=== PATIENT | female | born 1995 | race Hispanic/Latino ===

== ENCOUNTER 2018-09-08 13:37 | Emergency (ER) | payer BC, OTHER ==
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
--- NOTE | 2018-09-08 15:09 | RAD REPORT ---
EXAM DESCRIPTION: RAD - Tib Fib Left - 09/08/2018 2:58 pm CLINICAL HISTORY: PAIN COMPARISON: <Comparisons> FINDINGS: No fracture or dislocation seen.
[2018-09-11 15:26] VITALS: BP 119/76; TEMP 99; O2SAT 100
== END 2018-09-08 15:15 | disposition home or self-care (01) ==
LOC: ER 13:37
DX: J34.89 Other specified disorders of nose and nasal sinuses (principal); S80.812A Abrasion, left lower leg, initial encounter; S00.83XA Contusion of other part of head, initial encounter; Y04.0XXA Assault by unarmed brawl or fight, initial encounter
CPT/HCPCS: 70450; 70486; 76377; 99283

== ENCOUNTER 2020-09-16 03:43 | Emergency (ER) | payer BC, OTHER ==
--- OUTSIDE RECORDS SUMMARY | 2020-09-16 03:46 | XMS REPORT | Continuity of Care Document ---
:1995 Author Organization [facility] t Address [address] [place] [address] Care Team Providers Name Role Phone Jacobo TREVINO Attending Clinician Doctor Unassigned, Name Attending Clinician Unavailable Only, Test Attending Clinician Unavailable Ultrasound Attending Clinician Unavailable 2, Lab Attending Clinician Unavailable Jacobo TREVINO Admitting Clinician Problems This patient has no known problems. Allergies, Adverse Reactions, Alerts This patient has no known allergies or adverse reactions. Medications This patient has no known medications. Procedures This patient has no known procedures. Encounters Start End Encounter Admission Attending Care Care Encounter Source Date/Time Date/Time Type Type Clinicians Facility Department ID 2020-07-09 2020-07-10 [facility] Barbara Centeno [facility] 1.2.840.114 [id number] 04:45:00 20:30:00 Encounter Danette [id number] [place] [id number] [place] [id number] 2020-07-09 2020-07-09 Orders Doctor HERACLIO 1.2.840.114 [id number] 00:00:00 00:00:00 Only Unassigned, [place]OSIE [id number] [place] [facility] [id number] [id number] 2020-07-06 2020-07-06 Laboratory Only, [facility] 1.2.840.114 [id number] 15:10:23 15:25:23 Only Test Danette [id number] [place] [id number] [place] [id number] 2020-07-06 2020-07-06 Orders Doctor HERACLIO 1.2.840.114 [id number] 00:00:00 00:00:00 Only Unassigned, JOSIE [id number] [place] [address]686 [id number] [id number] 2020-06-21 2020-06-21 Orders Doctor HERACLIO 1.2.840.114 [id number] 00:00:00 00:00:00 Only Unassigned, JOSIE [id number] [place] [address]686 [id number] [id number] 2020-06-10 2020-06-10 [employer] Ultrasound, [facility] 1.2.840.114 [id number] 15:02:27 15:36:33 Visit Ang-[employer] [employer] PROGRAM[employer] REMOTE [id number] [facility] [id number] MATERNAL [id number] & CHILD [address] [facility] 2020-06-01 2020-06-01 Hospital Barbara Centeno [facility] 1.2.840.114 [id number] 12:38:00 19:30:00 Encounter Danette [id number] [place] [id number] [place] [id number] 2020-06-01 2020-06-01 Orders Doctor PULLIAM 1.2.840.114 [id number] 00:00:00 00:00:00 Only Unassigned, JOSIE [id number] [place] [id number] [id number] 2020-05-27 2020-05-27 [employer] Ultrasound, [facility] 1.2.840.114 [id number] 15:24:27 15:54:27 Visit Ang[employer]OTE [id number] [facility] [id number] MATERNAL [id number] & CHILD [address] [facility] 2020-03-17 2020-03-17 [employer] Worker 2, Adc Lab [facility] 1.2.840.114 [id number] 16:13:42 16:28:42 Visit [place] [id number] [place] [id number] Professio [id number] [address] 2020-03-03 2020-03-03 [employer] Worker Ultrasound, [facility] 1.2.840.114 [id number] 14:11:09 15:11:09 Visit Ang[employer]GRAM[employer] REMOTE [id number] [facility] [id number] MATERNAL [id number] & CHILD [address] [place] [address] [facility] [place] 2020-01-09 2020-01-09 Telephone Barbara Centeno [facility] 1.2.840.114 [id number] 00:00:00 00:00:00 [place] [id number] [place] [id number] Professio [id number] [address] 2020-01-07 2020-01-07 Orders Doctor HERACLIO 1.2.840.114 [id number] 00:00:00 00:00:00 Only Unassigned, JOSIE [id number] [place] [facility] [id number] [id number] 2019-12-26 2019-12-26 [employer] Worker 2, Adc Lab [place] 1.2.840.114 [id number] 10:34:43 10:49:43 Visit [place] [id number] [place] [id number] Professio [id number] [address] 2019-12-22 2019-12-22 Telephone Barbara Centeno [facility] 1.2.840.114 [id number] 00:00:00 00:00:00 [place] [id number] [place] [id number] Professio [id number] [address] 2019-12-19 2019-12-19 Initial Barbara Centeno [facility] 1.2.840.114 [id number] 14:31:14 16:02:34 [place] [id number] Visit [place] [id number] Professio [id number] [address] 2019-12-19 2019-12-19 Orders Doctor HERACLIO 1.2.840.114 [id number] 00:00:00 00:00:00 Only Unassigned, JOSIE [id number] [place] [facility] [id number] [id number] [id number] Results This patient has no known results.
[2020-09-16 04:31] LABS: Absolute Lymphocytes (CBC) 1.7 K/uL (0.7-4.9); Basophils % 0.7 % (0-1.3); Hematocrit 36.4 % (36.0-45.0); Lymphocytes % 24.9 % (15.3-44.8); MPV 10.3 fL (7.6-11.3); RBC Red Blood Cell Count 4.26 M/uL (3.86-4.86)
[2020-09-16] MEDS ORDERED: LIDOCAINE VISCOUS 2% SOLN 15 ML UDC ONE (04:42)
[2020-09-16] MEDS ORDERED: MAGNES/ALUMIN/SIMET 30ML UCUP ONE (04:42)
[2020-09-16 04:48] LABS: ALT/SGPT 70 U/L (12-78); AST/SGOT 30 U/L (15-37); Albumin 3.9 g/dL (3.4-5.0); Alkaline Phosphatase 94 U/L (45-117); BUN Blood Urea Nitrogen 14 mg/dL (7-18); Bicarbonate 28 mmol/L (21-32); Bilirubin Direct < 0.1 mg/dL (0-0.2); Bilirubin Total 0.3 mg/dL (0.2-1.0); Glucose Level 95 mg/dL (74-106); Lipase 126 U/L (73-393); Potassium 3.8 mmol/L (3.5-5.1); Protein, Total 7.6 g/dL (6.4-8.2); Sodium Level 142 mmol/L (136-145)
[2020-09-16] MEDS ORDERED: MORPHINE 4 MG/ML SYR ONE (06:37)
[2020-09-16] MEDS ORDERED: ONDANSETRON 4 MG/2 ML VIAL ONE (06:37)
--- NOTE | 2020-09-16 06:53 | ER ---
Nurse's Notes [facility] Name: Sihra Pineda Age: 25 yrs Sex: Female : 1995 Arrival Date: 09/16/2020 Time: 03:46 Bed 19 Private MD: Diagnosis: Other cholelithiasis without obstruction Presentation: 09/16 03:55 Chief complaint: Parent and/or Guardian states: Reports she ate pizza last night, ea started having abdominal pain at midnight. Denies n/v/d. Coronavirus screen: At this time, the client does not indicate any symptoms associated with coronavirus-19. Ebola Screen: No symptoms or risks identified at this time. Initial Sepsis Screen: Does the patient meet any 2 criteria? No. Patient's initial sepsis screen is negative. Does the patient have a suspected source of infection? No. Patient's initial sepsis screen is negative. Risk Assessment: Do you want to hurt yourself or someone else? Patient reports no desire to harm self or others. Onset of symptoms was September 16, 2020. 03:55 Method Of Arrival: Ambulatory ea 03:55 Acuity: RAMANDEEP 3 ea Triage Assessment: 04:00 General: Appears uncomfortable, Behavior is calm, cooperative. Pain: Complains of pain bb in epigastric area. Neuro: Level of Consciousness is awake, alert, obeys commands, Oriented to person, place, time. Respiratory: Airway is patent Respiratory effort is even, unlabored, Respiratory pattern is regular, symmetrical. GI: Abdomen is non-distended. PHARMACY INFORMATICS MANAGER: 04:00 LMP 09/09/2020 bb Historical: - Allergies: 04:00 No Known Allergies; bb - PMHx: 04:00 None; bb - Immunization history:: Adult Immunizations up to date. - Social history:: Smoking status: Patient denies any tobacco usage or history of. Screenin:57 Abuse screen: Denies threats or abuse. Nutritional screening: No deficits noted. ea Tuberculosis screening: No symptoms or risk factors identified. Fall Risk None identified. Assessment: 04:16 GI: Bowel sounds present X 4 quads. Abd is soft Abdomen is tender to palpation X 4 jm8 quads. 06:50 Reassessment: Patient appears in no apparent distress at this time. No changes from jm8 previously documented assessment. Patient and/or family updated on plan of care and expected duration. Pain level reassessed. Patient is alert, oriented x 3, equal unlabored respirations, skin warm/dry/pink. 07:13 Reassessment: Patient appears in no apparent distress at this time. Patient and/or jd3 family updated on plan of care and expected duration. Pain level reassessed. Patient is alert, oriented x 3, equal unlabored respirations, skin warm/dry/pink. Patient states feeling better. General: Appears in no apparent distress. comfortable, Behavior is calm, cooperative, appropriate for age. Pain: Complains of pain in abdomen Quality of pain is described as aching. Neuro: Level of Consciousness is awake, alert, obeys commands, Oriented to person, place, time, situation. Cardiovascular: No deficits noted. Respiratory: No deficits noted. GI: Abdomen is flat, non-distended, Abd is soft and non tender X 4 quads. Reports upper abdominal pain. : No signs and/or symptoms were reported regarding the genitourinary system. EENT: No signs and/or symptoms were reported regarding the EENT system. Derm: Skin is intact, Skin is dry, Skin is normal, Skin temperature is warm. Musculoskeletal: Circulation, motion, and sensation intact. Range of motion: intact in all extremities. Vital Signs: 03:55 BP 123 / 83; Pulse 73; Resp 18; Temp 97.3; Pulse Ox 100% ; Weight 71.21 kg; Height 5 ea ft. 3 in. (160.02 cm); 06:34 BP 127 / 84; Pulse 78; Resp 16; Pulse Ox 99% on R/A; jm8 03:55 Body Mass Index 27.81 (71.21 kg, 160.02 cm) ED Course: 03:46 Patient arrived in ED. es 03:47 Dylon Moran MD is Attending Physician. tw4 03:57 Triage completed. ea 03:57 Patient has correct armband on for positive identification. Bed in low position. Call ea light in reach. Side rails up X2. 04:00 Arm band placed on right wrist. Patient placed in an exam room, on a stretcher, on bb pulse oximetry. 04:15 Inserted saline lock: 20 gauge in right antecubital area, using aseptic technique. jm8 06:57 US Abdomen Limited In Process Unspecified. EDMS 06:57 Mino, Graham, MD is Referral Physician. tw4 06:57 Lee Marrero MD is Referral Physician. tw4 06:57 Simi Brewster MD is Referral Physician. tw4 06:57 Dom Henry MD is Referral Physician. tw4 07:08 Amilcar Keen, RN is Primary Nurse. jd3 07:14 No provider procedures requiring assistance completed. IV discontinued, intact, jd3 bleeding controlled, No redness/swelling at site. Pressure dressing applied. Administered Medications: 04:23 Drug: GI Cocktail without - (Maalox Suspension 30 ml, Lidocaine Liquid 2 % 15 jm8 ml) Route: PO; 06:20 Follow up: Response: No adverse reaction jm8 06:19 Drug: morphine 4 mg Route: IVP; Site: right antecubital; jm8 06:51 Follow up: Response: No adverse reaction jm8 06:19 Drug: Zofran (Ondansetron) 4 mg Route: IVP; Site: right antecubital; jm8 06:51 Follow up: Response: No adverse reaction jm8 Outcome: 06:52 Discharge ordered by . tw4 07:14 Discharged to home ambulatory, with family. jd3 07:14 Condition: stable 07:14 Discharge instructions given to patient, family, Instructed on discharge instructions, follow up and referral plans. medication usage, Demonstrated understanding of instructions, follow-up care, medications, Prescriptions given X 1. 07:23 Patient left the ED. jd3 Signatures: Dispatcher [employer] [facility] Shirley Richardson Brenda RN Katherine Goncalves RN RN ea Davies, Jonathon, RN RN jDylon Pitt MD MD tw Hermelindo Page, RN RN jm8
--- NOTE | 2020-09-16 06:54 | EDPHYS ---
Physician Documentation [facility] Name: Shira Pineda Age: 25 yrs Sex: Female : 1995 Arrival Date: 09/16/2020 Time: 03:46 Bed 19 Private MD: ED Physician Dylon Moran HPI: 09/16 04:20 This 25 yrs old Female presents to ER via Ambulatory with complaints of tw4 Abdominal Pain. 04:20 The patient presents with abdominal pain. Onset: The symptoms/episode began/occurred tw4 today. The symptoms do not radiate. Associated signs and symptoms: none. Modifying factors: The symptoms are alleviated by nothing, the symptoms are aggravated by nothing. Severity of pain: At its worst the pain was moderate in the emergency department the pain is unchanged. The patient has not experienced similar symptoms in the past. 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 - Social history:: Smoking status: Patient denies any tobacco usage or history of. ROS: 04:20 Constitutional: Negative for fever, chills, and weight loss, Eyes: Negative for injury, tw4 pain, redness, and discharge, Cardiovascular: Negative for chest pain, palpitations, and edema, Respiratory: Negative for shortness of breath, cough, wheezing, and pleuritic chest pain, Back: Negative for injury and pain, MS/Extremity: Negative for injury and deformity, Skin: Negative for injury, rash, and discoloration, Neuro: Negative for headache, weakness, numbness, tingling, and seizure. 04:20 Abdomen/GI: Positive for abdominal pain, Negative for nausea and vomiting, nausea, vomiting, and diarrhea, nausea, diarrhea, abdominal cramps, abdominal distension, anorexia, black/tarry stool. Exam: 06:15 Constitutional: This is a well developed, well nourished patient who is awake, alert, tw4 and in no acute distress. Head/Face: Normocephalic, atraumatic. Chest/axilla: Normal chest wall appearance and motion. Nontender with no deformity. No lesions are appreciated. Cardiovascular: Regular rate and rhythm with a normal S1 and S2. No gallops, murmurs, or rubs. Normal PMI, no JVD. No pulse deficits. Respiratory: Lungs have equal breath sounds bilaterally, clear to auscultation and percussion. No rales, rhonchi or wheezes noted. No increased work of breathing, no retractions or nasal flaring. Skin: Warm, dry with normal turgor. Normal color with no rashes, no lesions, and no evidence of cellulitis. MS/ Extremity: Pulses equal, no cyanosis. Neurovascular intact. Full, normal range of motion. Neuro: Awake and alert, GCS 15, oriented to person, place, time, and situation. Cranial nerves II-XII grossly intact. Motor strength 5/5 in all extremities. Sensory grossly intact. Cerebellar exam normal. Normal gait. 06:15 Abdomen/GI: Inspection: abdomen appears normal, Bowel sounds: normal, Palpation: moderate abdominal tenderness, in the epigastric area. Vital Signs: 03:55 BP 123 / 83; Pulse 73; Resp 18; Temp 97.3; Pulse Ox 100% ; Weight 71.21 kg; Height 5 ea ft. 3 in. (160.02 cm); 06:34 BP 127 / 84; Pulse 78; Resp 16; Pulse Ox 99% on R/A; jm8 03:55 Body Mass Index 27.81 (71.21 kg, 160.02 cm) ea MDM: 06:52 Patient medically screened. 09/16 03:54 Order name: Basic Metabolic Panel 09/16 03:54 Order name: CBC with Diff; Complete Time: 06:14 09/16 03:54 Order name: Hepatic Function 09/16 03:54 Order name: Lipase; Complete Time: 06:14 09/16 03:55 Order name: Basic Metabolic Panel; Complete Time: 06:14 EDMS 09/16 03:55 Order name: Liver (Hepatic) Function; Complete Time: 06:14 EDNH 09/16 03:54 Order name: IV Saline Lock; Complete Time: 04:15 09/16 03:54 Order name: Labs collected and sent; Complete Time: 04:15 tw09/16 06:36 Order name: US Abdomen Limited tw4 Administered Medications: 04:23 Drug: GI Cocktail without - (Maalox Suspension 30 ml, Lidocaine Liquid 2 % 15 jm8 ml) Route: PO; 06:20 Follow up: Response: No adverse reaction jm8 06:19 Drug: morphine 4 mg Route: IVP; Site: right antecubital; jm8 06:51 Follow up: Response: No adverse reaction jm8 06:19 Drug: Zofran (Ondansetron) 4 mg Route: IVP; Site: right antecubital; jm8 06:51 Follow up: Response: No adverse reaction jm8 Disposition Summary: 09/16/20 06:52 Discharge Ordered Location: Home tw4 Problem: new tw4 Symptoms: have improved tw4 Condition: Stable tw4 Diagnosis - Other cholelithiasis without obstruction tw4 Followup: tw4 - With: Private Physician - When: Upon discharge from the Emergency Department - Reason: Recheck today's complaints, Continuance of care, Re-evaluation by your physician Followup: tw4 - With: Graham Herzog MD - When: Upon discharge from the Emergency Department - Reason: Recheck today's complaints, Continuance of care, Re-evaluation by your physician Followup: tw4 - With: Lee Marrero MD - When: Upon discharge from the Emergency Department - Reason: Recheck today's complaints, Continuance of care, Re-evaluation by your physician Followup: tw4 - With: Simi Brewster MD - When: Upon discharge from the Emergency Department - Reason: Recheck today's complaints, Continuance of care, Re-evaluation by your physician Followup: tw4 - With: Dom Henry MD - When: Upon discharge from the Emergency Department - Reason: Recheck today's complaints, Continuance of care, Re-evaluation by your physician Discharge Instructions: - Discharge Summary Sheet tw4 - Cholelithiasis tw4 Forms: - Medication Reconciliation Form tw4 - Thank You Letter tw4 - Antibiotic Education tw4 - Prescription Opioid Use tw4 Prescriptions: - Ibuprofen 800 mg Oral Tablet - take 1 tablet by ORAL route every 12 hours As needed take with food; 20 tablet; tw4 Refills: 0, Product Selection Permitted Signatures: Dispatcher [employer] Amber Hanson RN RN bb Antunez, Elena, RN RN ea Wadley, Terrence, MD MD tw4 Hermelindo Page RN RN jm8
[2020-09-16 07:42] VITALS: TEMP 97.3
--- NOTE | 2020-09-16 07:44 | RAD REPORT ---
EXAM DESCRIPTION: US - Abdomen Exam Limited - 09/16/2020 6:57 am CLINICAL HISTORY: R/O GALLSTONES;Abd pain Preliminary findings were provided at the time of the study. COMPARISON: No comparisons FINDINGS: Multiple small sub 5 mm sized mobile gallstones are identified. No gallstones, wall thicke constantine or pericholecystic fluid. Common bile duct is 5 mm, normal range, with no common duct stone iden tified. Very limited liver ultrasound imaging shows no suspicious finding. IMPRESSION: Cholelithiasis with multiple small mobile gallstones identified. No other gallbladder or biliary tree finding.
[2020-09-16 07:47] VITALS: BP 127/84; O2SAT 99
== END 2020-09-16 07:23 | disposition home or self-care (01) ==
LOC: ER 03:43
DX: K80.80 Other cholelithiasis without obstruction (principal)
CPT/HCPCS: 85025; 80048; 36415; 80076; 83690; 76705; 96375; 96374; 99284; J2405

== ENCOUNTER 2020-09-20 08:37 | Emergency (ER) | payer OTHER ==
--- OUTSIDE RECORDS SUMMARY | 2020-09-20 08:40 | XMS REPORT | Continuity of Care Document ---
:1995 Author Organization [facility] t Address [address] [place] [address] Care Team Providers Name Role Phone Jacobo TREVINO Attending Clinician Problems This patient has no known problems. Allergies, Adverse Reactions, Alerts This patient has no known allergies or adverse reactions. Medications This patient has no known medications. Procedures This patient has no known procedures. Encounters Start End Encounter Admission Attending Care Care Encounter Source Date/Time Date/Time Type Type Clinicians Facility Department ID 2020-09-17 2020-09-17 Office Barbara Centeno [facility] [id number] 13:56:52 14:56:12 Visit [place] [id number] [place] [id number] Carmen [id number] [facility] [address] [facility] Results This patient has no known results.
[2020-09-20 09:02] LABS: Urine Blood Trace-intact (Negative); Urine Glucose Negative (Negative); Urine Protein Negative (Negative); Urine Specific Gravity >=1.030 (1.005-1.030)
[2020-09-20 09:21] LABS: Absolute Lymphocytes (CBC) 1.8 K/uL (0.7-4.9); Hematocrit 35.9 % (36.0-45.0); Lymphocytes % 30.4 % (15.3-44.8); RBC Red Blood Cell Count 4.24 M/uL (3.86-4.86)
[2020-09-20] MEDS ORDERED: ONDANSETRON 4 MG/2 ML VIAL ONE (09:23)
[2020-09-20] MEDS ORDERED: MORPHINE 4 MG/ML SYR ONE (09:23)
[2020-09-20] MEDS ORDERED: NA CHLORIDE 0.9% 500 ML ONE (09:24)
[2020-09-20 09:40] LABS: ALT/SGPT 55 U/L (12-78); AST/SGOT 22 U/L (15-37); Albumin 3.8 g/dL (3.4-5.0); Alkaline Phosphatase 88 U/L (45-117); BUN Blood Urea Nitrogen 17 mg/dL (7-18); Bicarbonate 27 mmol/L (21-32); Bilirubin Direct < 0.1 mg/dL (0-0.2); Bilirubin Total 0.3 mg/dL (0.2-1.0); Glucose Level 88 mg/dL (74-106); Lipase 116 U/L (73-393); Potassium 3.9 mmol/L (3.5-5.1); Protein, Total 7.3 g/dL (6.4-8.2); Sodium Level 139 mmol/L (136-145)
--- NOTE | 2020-09-20 09:42 | RAD REPORT ---
EXAM DESCRIPTION: US - Abdomen Exam Limited - 09/20/2020 9:34 am CLINICAL HISTORY: ABD PAIN COMPARISON: Abdomen Exam Limited dated 09/16/2020 FINDINGS: The gallbladder demonstrates small shadowing stones and a small amount of sludge. No peric holecystic fluid or gallbladder wall thickening. The common bile duct is normal measuring 5-6 mm. The liver demonstrates no findings of intrahepatic biliary dilatation. IMPRESSION: Cholelithiasis.
--- NOTE | 2020-09-20 10:41 | ER ---
Nurse's Notes [facility] Name: Shira Pineda Age: 25 yrs Sex: Female : 1995 Arrival Date: 09/20/2020 Time: 08:39 Bed 14 Private MD: Diagnosis: Other cholelithiasis without obstruction;Nausea Presentation: 09/20 08:52 Chief complaint: Patient states: EPIGASTRIC AND RUQ PAIN SINCE LAST PM. SEEN FOR SAME bp RECENTLY, DX WITH CHOLELITHIASIS. Coronavirus screen: At this time, the client does not indicate any symptoms associated with coronavirus-19. Ebola Screen: No symptoms or risks identified at this time. Initial Sepsis Screen: Does the patient meet any 2 criteria? No. Patient's initial sepsis screen is negative. Does the patient have a suspected source of infection? No. Patient's initial sepsis screen is negative. Risk Assessment: Do you want to hurt yourself or someone else? Patient reports no desire to harm self or others. Onset of symptoms was September 19, 2020. 08:52 Method Of Arrival: Ambulatory bp 08:52 Acuity: RAMANDEEP 3 bp Triage Assessment: 08:53 General: Appears distressed, uncomfortable, Behavior is calm, cooperative, appropriate bp for age. Pain: Complains of pain in epigastric area and right upper quadrant. EENT: No deficits noted. Neuro: No deficits noted. Cardiovascular: No deficits noted. Respiratory: No deficits noted. GI: Abdomen is non-distended, Reports upper abdominal pain, nausea. : No signs and/or symptoms were reported regarding the genitourinary system. Derm: No deficits noted. Musculoskeletal: No deficits noted. 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 - Social history:: Smoking status: Patient denies any tobacco usage or history of. - Family history:: not pertinent. - Hospitalizations: : No recent hospitalization is reported. Screenin:55 Abuse screen: Denies threats or abuse. Denies injuries from another. Nutritional bp screening: No deficits noted. Tuberculosis screening: No symptoms or risk factors identified. Fall Risk None identified. Assessment: 08:55 General: SEE TRIAGE NOTE. bp 10:31 GI: Bowel sounds present X 4 quads. Abdomen is tender to palpation in RUQ. tr6 Vital Signs: 08:52 BP 117 / 99; Pulse 71; Resp 16; Temp 98.7; Pulse Ox 100% ; Weight 69.85 kg; Height 5 bp ft. 3 in. (160.02 cm); 10:29 BP 113 / 82; Pulse 62; Resp 18; Pulse Ox 100% on R/A; tr6 08:52 Body Mass Index 27.28 (69.85 kg, 160.02 cm) bp ED Course: 08:39 Patient arrived in ED. rg4 08:43 Larry Goldsmith MD is Attending Physician. rn 08:53 Triage completed. bp 08:53 Arm band placed on. bp 08:55 Patient has correct armband on for positive identification. Bed in low position. Call bp light in reach. Side rails up X2. 09:13 Ara Pearl RN is Primary Nurse. tr6 09:13 Inserted saline lock: 20 gauge in right antecubital area, using aseptic technique. tr6 Blood collected. 09:34 US Abdomen Limited In Process Unspecified. EDMS 10:30 No provider procedures requiring assistance completed. tr6 10:40 Dewey Locke MD is Referral Physician. rn 12:01 IV discontinued, intact, bleeding controlled, No redness/swelling at site. Pressure tr6 dressing applied. Administered Medications: 09:13 Drug: morphine 4 mg Route: IVP; Site: right antecubital; tr6 12:02 Follow up: Response: No adverse reaction tr6 09:13 Drug: Zofran (Ondansetron) 4 mg Route: IVP; Site: right antecubital; tr6 12:02 Follow up: Response: No adverse reaction tr6 09:13 Drug: NS 0.9% 500 ml Route: IV; Rate: bolus; Site: right antecubital; tr6 11:00 Drug: Zosyn (piperacillin-tazobactam) 3.375 grams Route: IVPB; Infused Over: 60 mins; tr6 Site: right antecubital; 12:02 Follow up: Response: No adverse reaction tr6 Outcome: 10:40 Discharge ordered by . rn 12:01 Discharged to home ambulatory. tr6 12:01 Condition: good 12:01 Discharge instructions given to patient, Instructed on discharge instructions, follow up and referral plans. medication usage, safety practices, Demonstrated understanding of instructions, follow-up care, medications, Prescriptions given X 2. 12:03 Patient left the ED. tr6 Signatures: Dispatcher [employer] EDMS Larry Goldsmith MD MD rn Garcia, Rubi rg4 Nael Park RN RN bp Ramnanan, Tiffany, RN RN tr6
--- NOTE | 2020-09-20 10:42 | EDPHYS ---
Physician Documentation [facility] Name: Shira Pineda Age: 25 yrs Sex: Female : 1995 Arrival Date: 09/20/2020 Time: 08:39 Bed 14 Private MD: ED Physician Larry Goldsmith HPI: 09/20 09:10 This 25 yrs old Female presents to ER via Ambulatory with complaints of rn Abdominal Pain. 09:10 The patient presents with abdominal pain in the right upper quadrant. Onset: The rn symptoms/episode began/occurred last night. The symptoms do not radiate. Associated signs and symptoms: Pertinent positives: nausea, Pertinent negatives: blood in stools, chest pain, fever, shortness of breath. The symptoms are described as sharp, stabbing. Modifying factors: The symptoms are alleviated by nothing, the symptoms are aggravated by touching the area. Severity of pain: At its worst the pain was moderate in the emergency department the pain is unchanged. The patient has experienced a previous episode. The patient has been recently seen by a physician:. Recently seen and diagnosed with gallstones, felt better, ate salmon for dinner and then last night began with pain again. No fever. + nausea. No vomiting or blood in stool. Same pain as before. Was weekend, so hasn't been able to f/u with surgery yet. . 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 - Social history:: Smoking status: Patient denies any tobacco usage or history of. - Family history:: not pertinent. - Hospitalizations: : No recent hospitalization is reported. ROS: 09:10 Constitutional: Negative for fever, chills, and weight loss, Eyes: Negative for injury, rn pain, redness, and discharge, Neck: Negative for injury, pain, and swelling, Cardiovascular: Negative for chest pain, palpitations, and edema, Respiratory: Negative for shortness of breath, cough, wheezing, and pleuritic chest pain, Abdomen/GI: + abd pain and nausea Back: Negative for injury and pain, : Negative for injury, bleeding, discharge, and swelling, MS/Extremity: Negative for injury and deformity, Skin: Negative for injury, rash, and discoloration, Neuro: Negative for headache, weakness, numbness, tingling, and seizure. 09:10 All other systems are negative. Exam: 09:10 Constitutional: This is a well developed, well nourished patient who is awake, alert, rn and in no acute distress. Head/Face: Normocephalic, atraumatic. Eyes: Periorbital areas with no swelling, redness, or edema. Cardiovascular: Regular rate and rhythm. No pulse deficits. Respiratory: No increased work of breathing, no retractions or nasal flaring. Abdomen/GI: soft, + tender RUQ, no masses, neg lamb Skin: Warm, dry MS/ Extremity: Pulses equal, no cyanosis. Neuro: Awake and alert, GCS 15 Vital Signs: 08:52 BP 117 / 99; Pulse 71; Resp 16; Temp 98.7; Pulse Ox 100% ; Weight 69.85 kg; Height 5 bp ft. 3 in. (160.02 cm); 10:29 BP 113 / 82; Pulse 62; Resp 18; Pulse Ox 100% on R/A; tr6 08:52 Body Mass Index 27.28 (69.85 kg, 160.02 cm) bp MDM: 08:44 Patient medically screened. rn 10:10 Differential diagnosis: cholecystitis, Cholelithiasis, gastritis, gastroesophageal rn reflux disease, non-specific abd pain, pancreatitis. Data reviewed: vital signs, nurses notes, lab test result(s), radiologic studies, ultrasound, and as a result, I will discharge patient. Counseling: I had a detailed discussion with the patient and/or guardian regarding: the historical points, exam findings, and any diagnostic results supporting the discharge/admit diagnosis, lab results, radiology results, the need for outpatient follow up, to return to the emergency department if symptoms worsen or persist or if there are any questions or concerns that arise at home. Response to treatment: the patient's symptoms have markedly improved after treatment, and as a result, I will discharge patient. Special discussion: Based on the patient's Hx, exam, and Dx evaluation, there is no indication for emergent surgery or inpatient Tx. It is understood by the patient/guardian that if the Sx's persist or worsen they need to return immediately for re-evaluation. I discussed with the patient/guardian in detail that at this point there is no indication for admission to the hospital. It is understood, however, that if the symptoms persist or worsen the patient needs to return immediately for re-evaluation. Based on the history and exam findings, there is no indication for further emergent testing or inpatient evaluation. I discussed with the patient/guardian the need to see the general surgeon for further evaluation of the symptoms. ED course: Pt initially was not doing better, BP dropped after morphine, got dizzy. Consulted with Dr. Locke, states try and resuscitate her, give zosyn, and if feels better can see later today in clinic for reeval. Pt feels better after fluids, BP normal, pain near resolved. Will dc home with instructions to f/u today.. 09/20 08:55 Order name: Basic Metabolic Panel; Complete Time: 09:47 rn 09/20 08:55 Order name: CBC with Diff; Complete Time: 09:47 rn 09/20 08:55 Order name: Hepatic Function; Complete Time: 09:47 rn 09/20 08:55 Order name: Lipase; Complete Time: 09:47 rn 09/20 09:02 Order name: Urine Dipstick-Ancillary; Complete Time: 09:47 EDMS 09/20 09:05 Order name: Urine --Ancillary (enter results); Complete Time: 09:47 eb 09/20 08:55 Order name: IV Saline Lock; Complete Time: 09:13 rn 09/20 08:55 Order name: Labs collected and sent; Complete Time: 09:13 rn 09/20 08:55 Order name: US Abdomen Limited; Complete Time: 09:47 rn 09/20 08:56 Order name: Urine Dipstick-Ancillary (obtain specimen); Complete Time: 09:13 rn 09/20 08:56 Order name: Urine Test (obtain specimen); Complete Time: 09:13 rn Administered Medications: 09:13 Drug: morphine 4 mg Route: IVP; Site: right antecubital; tr6 12:02 Follow up: Response: No adverse reaction tr6 09:13 Drug: Zofran (Ondansetron) 4 mg Route: IVP; Site: right antecubital; tr6 12:02 Follow up: Response: No adverse reaction tr6 09:13 Drug: NS 0.9% 500 ml Route: IV; Rate: bolus; Site: right antecubital; tr6 11:00 Drug: Zosyn (piperacillin-tazobactam) 3.375 grams Route: IVPB; Infused Over: 60 mins; tr6 Site: right antecubital; 12:02 Follow up: Response: No adverse reaction tr6 Disposition Summary: 09/20/20 10:40 Discharge Ordered Location: Home rn Problem: new rn Symptoms: have improved rn Condition: Stable rn Diagnosis - Other cholelithiasis without obstruction rn - Nausea rn Followup: rn - With: Dewey Locke MD - When: Today - Reason: Recheck today's complaints, Re-evaluation by your physician Discharge Instructions: - Discharge Summary Sheet rn - Nausea and Vomiting, Adult rn - Cholelithiasis rn Forms: - Medication Reconciliation Form rn - Thank You Letter rn - 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
[2020-09-20] MEDS ORDERED: PIPERACIL/TAZO 3.375 GM VIAL IV ONE (10:54)
[2020-09-20 12:25] VITALS: TEMP 98.7; O2SAT 100
[2020-09-20 12:33] VITALS: BP 113/82
== END 2020-09-20 12:03 | disposition home or self-care (01) ==
LOC: ER 08:37
DX: K80.80 Other cholelithiasis without obstruction (principal); R11.0 Nausea
CPT/HCPCS: 85025; 80048; 36415; 81025; 80076; 81003; 83690; 76705; 96375; 96374; 99284; J2543; J7040; J2405

== ENCOUNTER 2020-10-03 07:37 | Emergency (ER) | payer OTHER ==
--- OUTSIDE RECORDS SUMMARY | 2020-10-03 07:39 | XMS REPORT | Continuity of Care Document ---
:1995 Author Organization [facility] t Address [address] [place] [address] Care Team Providers Name Role Phone Jacobo TREVINO Attending Clinician Doctor Unassigned, Name Attending Clinician Unavailable Problems This patient has no known problems. Allergies, Adverse Reactions, Alerts This patient has no known allergies or adverse reactions. Medications This patient has no known medications. Procedures This patient has no known procedures. Encounters Start End Encounter Admission Attending Care Care Encounter Source Date/Time Date/Time Type Type Clinicians Facility Department ID 2020-09-17 2020-09-17 Office Barbara Centeno [facility] [id number] 13:56:52 14:56:12 Visit [place] [id number] [place] [id number] Carm[place] [id number] [address] 2020-09-17 2020-09-17 Orders Doctor HERACLIO [id number] 00:00:00 00:00:00 Only UnassJOSIE miranda [id number] [place] [id number] Results This patient has no known results.
[2020-10-03 08:43] LABS: Urine Blood Negative (Negative); Urine Glucose Negative (Negative); Urine Protein Negative (Negative); Urine Specific Gravity 1.025 (1.005-1.030); Urine pH 6.5 (5.0-7.0)
[2020-10-03] MEDS ORDERED: MORPHINE 4 MG/ML SYR ONE (08:48)
[2020-10-03] MEDS ORDERED: ONDANSETRON 4 MG/2 ML VIAL ONE (08:50)
[2020-10-03 09:04] LABS: Basophils % 0.7 % (0-1.3); Hematocrit 36.2 % (36.0-45.0); Lymphocytes % 20.5 % (15.3-44.8); RBC Red Blood Cell Count 4.18 M/uL (3.86-4.86)
[2020-10-03 09:16] LABS: Urine Specific Gravity/Preg 1.025 (1.005-1.030)
--- NOTE | 2020-10-03 09:18 | RAD REPORT ---
EXAM DESCRIPTION: US - Abdomen Exam Limited - 10/03/2020 8:25 am CLINICAL HISTORY: ruq;Abd pain COMPARISON: Abdomen Exam Limited dated 09/20/2020bdomen Exam Limited dated 09/20/2020 FINDINGS: The gallbladder demonstrates cholelithiasis No pericholecystic fluid or gallbladder wall t hickening. The common bile duct is upper limits of normal measuring 6 millimeters. The liver demonstrates no findings of intrahepatic biliary dilatation. IMPRESSION: Cholelithiasis without sonographic evidence of acute cholecystitis.
[2020-10-03 09:29] LABS: ALT/SGPT 46 U/L (12-78); AST/SGOT 32 U/L (15-37); Albumin 3.5 g/dL (3.4-5.0); Alkaline Phosphatase 89 U/L (45-117); BUN Blood Urea Nitrogen 11 mg/dL (7-18); Bicarbonate 27 mmol/L (21-32); Bilirubin Direct < 0.1 mg/dL (0-0.2); Bilirubin Total 0.2 mg/dL (0.2-1.0); Glucose Level 91 mg/dL (74-106); Lipase 110 U/L (73-393); Potassium 3.8 mmol/L (3.5-5.1); Sodium Level 140 mmol/L (136-145)
--- NOTE | 2020-10-03 10:00 | EDPHYS ---
Physician Documentation [facility] Name: Shira Pineda Age: 25 yrs Sex: Female : 1995 Arrival Date: 10/03/2020 Time: 07:38 Bed 16 Private MD: ED Physician Denilson Willis HPI: 10/03 08:50 This 25 yrs old Female presents to ER via Ambulatory with complaints of ma2 Abdominal Pain, Vomiting. 08:50 The patient presents to the emergency department with nausea, vomiting, diarrhea. ma2 Onset: The symptoms/episode began/occurred gradually, 1 day(s) ago. Associated signs and symptoms: Pertinent negatives: belching, constipation, dysuria, fever. Severity of symptoms: At their worst the symptoms were moderate in the emergency department the symptoms are unchanged. The patient has experienced similar episodes in the past, Has cholelithiasis. 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 - Social history:: Smoking status: Patient denies any tobacco usage or history of. - Family history:: not pertinent. ROS: 08:50 Constitutional: Negative for fever, chills, and weight loss. ma2 08:50 All other systems are negative. Exam: 08:50 Constitutional: This is a well developed, well nourished patient who is awake, alert, ma2 and in no acute distress. Head/Face: Normocephalic, atraumatic. Eyes: Pupils equal round and reactive to light, extra-ocular motions intact. Lids and lashes normal. Conjunctiva and sclera are non-icteric and not injected. Cornea within normal limits. Periorbital areas with no swelling, redness, or edema. ENT: Nares patent. No nasal discharge, no septal abnormalities noted. Tympanic membranes are normal and external auditory canals are clear. Oropharynx with no redness, swelling, or masses, exudates, or evidence of obstruction, uvula midline. Mucous membranes moist. Neck: Trachea midline, no thyromegaly or masses palpated, and no cervical lymphadenopathy. Supple, full range of motion without nuchal rigidity, or vertebral point tenderness. No Meningismus. Chest/axilla: Normal chest wall appearance and motion. Nontender with no deformity. No lesions are appreciated. Cardiovascular: Regular rate and rhythm with a normal S1 and S2. No gallops, murmurs, or rubs. Normal PMI, no JVD. No pulse deficits. Respiratory: Lungs have equal breath sounds bilaterally, clear to auscultation and percussion. No rales, rhonchi or wheezes noted. No increased work of breathing, no retractions or nasal flaring. Abdomen/GI: Soft, non-tender, with normal bowel sounds. No distension or tympany. No guarding or rebound. No evidence of tenderness throughout. Skin: Warm, dry with normal turgor. Normal color with no rashes, no lesions, and no evidence of cellulitis. MS/ Extremity: Pulses equal, no cyanosis. Neurovascular intact. Full, normal range of motion. Neuro: Awake and alert, GCS 15, oriented to person, place, time, and situation. Cranial nerves II-XII grossly intact. Motor strength 5/5 in all extremities. Sensory grossly intact. Cerebellar exam normal. Normal gait. Vital Signs: 07:54 BP 107 / 65; Pulse 75; Resp 16; Temp 97.0; Pulse Ox 98% on R/A; Weight 71.21 kg; Pain iw 10/10; 09:00 BP 100 / 54; Pulse 61; Resp 15; Pulse Ox 98% ; bp 10:49 BP 91 / 48; Pulse 66; Resp 16; Pulse Ox 100% ; bp MDM: 07:57 Patient medically screened. kb 08:50 Differential diagnosis: Nonspecific abd pain, gastritis, cholecystitis, pancreatitis, ma2 viral gastroenteritis, gastroenteritis. 09:58 Data reviewed: vital signs, nurses notes. Counseling: I had a detailed discussion with maAna the patient and/or guardian regarding: the historical points, exam findings, and any diagnostic results supporting the discharge/admit diagnosis, the presence of at least one elevated blood pressure reading (>120/80) during this emergency department visit, the need for outpatient follow up. Response to treatment: the patient's symptoms have markedly improved after treatment. 10/03 07:41 Order name: Basic Metabolic Panel; Complete Time: 09:51 [facility] 10/03 07:41 Order name: CBC with Diff; Complete Time: :16 ma2 10/03 07:41 Order name: Hepatic Function; Complete Time: 09:51 ma2 10/03 07:41 Order name: Lipase; Complete Time: 09:51 ga2 10/03 08:43 Order name: Urine Dipstick-Ancillary; Complete Time: 09:16 EDMS 10/03 08:56 Order name: Urine --Ancillary (enter results); Complete Time: 09:16 eb 10/03 07:41 Order name: IV Saline Lock; Complete Time: 09:17 ma2 10/03 07:41 Order name: Labs collected and sent; Complete Time: 09:16 ma2 10/03 07:41 Order name: Urine Dipstick-Ancillary (obtain specimen); Complete Time: 09:17 [facility] 10/03 07:41 Order name: US Abdomen Limited; Complete Time: 09:51 ma2 Administered Medications: 09:00 Drug: morphine 4 mg Route: IVP; Site: left antecubital; bp 10:47 Follow up: Response: Pain is decreased bp 09:00 Drug: Zofran (Ondansetron) 4 mg Route: IVP; Site: left antecubital; bp 10:47 Follow up: Response: No adverse reaction bp 09:00 Drug: NS 0.9% 1000 ml Route: IV; Rate: 1 bolus; Site: left antecubital; bp 10:52 Follow up: IV Status: Completed infusion; IV Intake: 1000ml bp 10:15 Drug: HYDROcodone-acetaminophen 5 mg-325 mg 1 tabs Route: PO; bp 10:48 Follow up: Response: No adverse reaction; Pain is decreased bp Disposition Summary: 10/03/20 09:59 Discharge Ordered Location: Home ma2 Condition: Stable ma2 Diagnosis - Other cholelithiasis without obstruction ma2 Followup: ma2 - With: Private Physician - When: Tomorrow - Reason: Continuance of care Followup: ma2 - With: Dewey Locke MD - When: Tomorrow - Reason: If symptoms return, Continuance of care Discharge Instructions: - Discharge Summary Sheet ma2 - Cholelithiasis ma2 - Cholelithiasis, [id number] ma2 Forms: - Medication Reconciliation Form ma2 - Thank You Letter ma2 - Antibiotic Education ma2 - Prescription Opioid Use ma2 Prescriptions: - Diclofenac Sodium 75 mg Oral Tablet Sustained Release - take 1 tablet by ORAL route 2 times per day; 30 tablet; Refills: 0, Product ma2 Selection Permitted Signatures: Dispatcher [employer] Andra Garcia, TYRA JONES-Bern Swanson, RN Nael Mchugh RN RN bp Alzahri, Mohammad, MD MD ma2
--- NOTE | 2020-10-03 10:00 | ER ---
Nurse's Notes [facility] Name: Shira Pineda Age: 25 yrs Sex: Female : 1995 Arrival Date: 10/03/2020 Time: 07:38 Bed 16 Private MD: Diagnosis: Other cholelithiasis without obstruction Presentation: 10/03 07:52 Chief complaint: Patient states: right abd pain, from gallbladder, started a couple iw hours ago, also vomiting, hx of gallstones , is supposed to have gallbladder removed this week with Dr. Locke but pain is severe today. Coronavirus screen: At this time, the client does not indicate any symptoms associated with coronavirus-19. Ebola Screen: Patient negative for fever greater than or equal to 101.5 degrees Fahrenheit, and additional compatible Ebola Virus Disease symptoms Patient denies exposure to infectious person. Patient denies travel to an Ebola-affected area in the 21 days before illness onset. No symptoms or risks identified at this time. Initial Sepsis Screen: Does the patient meet any 2 criteria? No. Patient's initial sepsis screen is negative. Does the patient have a suspected source of infection? No. Patient's initial sepsis screen is negative. Risk Assessment: Do you want to hurt yourself or someone else? Patient reports no desire to harm self or others. 07:52 Method Of Arrival: Ambulatory iw 07:52 Acuity: RAMANDEEP 3 iw Triage Assessment: 08:00 General: Appears distressed, uncomfortable, Behavior is calm, cooperative, appropriate bp for age. Pain: Complains of pain in right upper quadrant. EENT: No deficits noted. Neuro: No deficits noted. Cardiovascular: No deficits noted. Respiratory: No deficits noted. GI: Reports upper abdominal pain, nausea. : No signs and/or symptoms were reported regarding the genitourinary system. Derm: No deficits noted. Musculoskeletal: No deficits noted. 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 - Social history:: Smoking status: Patient denies any tobacco usage or history of. - Family history:: not pertinent. Screenin:00 Abuse screen: Denies threats or abuse. Denies injuries from another. Nutritional bp screening: No deficits noted. Tuberculosis screening: No symptoms or risk factors identified. Fall Risk None identified. Assessment: 08:00 General: SEE TRIAGE NOTE. bp 09:00 Reassessment: ALL CURRENT ORDERS COMPLETED. bp 10:48 Reassessment: PT D/C HOME AMBULATORY, DX WITH CHOLELITHIASIS WITHOUT OBSTRUCTION. bp Vital Signs: 07:54 BP 107 / 65; Pulse 75; Resp 16; Temp 97.0; Pulse Ox 98% on R/A; Weight 71.21 kg; Pain iw 10/10; 09:00 BP 100 / 54; Pulse 61; Resp 15; Pulse Ox 98% ; bp 10:49 BP 91 / 48; Pulse 66; Resp 16; Pulse Ox 100% ; bp ED Course: 07:38 Patient arrived in ED. am2 07:54 Triage completed. iw 07:57 nAdra Valadez FNP-C is PHCP. kb 07:57 Denilson Willis MD is Attending Physician. kb 08:00 Arm band placed on. bp 08:00 Patient has correct armband on for positive identification. Bed in low position. Call bp light in reach. Side rails up X2. 08:00 No provider procedures requiring assistance completed. bp 08:21 Nael Park, RN is Primary Nurse. bp 08:25 US Abdomen Limited In Process Unspecified. EDMS 09:59 Dewey Locke MD is Referral Physician. ma2 10:50 IV discontinued, intact, bleeding controlled, No redness/swelling at site. Pressure bp dressing applied. Administered Medications: 09:00 Drug: morphine 4 mg Route: IVP; Site: left antecubital; bp 10:47 Follow up: Response: Pain is decreased bp 09:00 Drug: Zofran (Ondansetron) 4 mg Route: IVP; Site: left antecubital; bp 10:47 Follow up: Response: No adverse reaction bp 09:00 Drug: NS 0.9% 1000 ml Route: IV; Rate: 1 bolus; Site: left antecubital; bp 10:52 Follow up: IV Status: Completed infusion; IV Intake: 1000ml bp 10:15 Drug: HYDROcodone-acetaminophen 5 mg-325 mg 1 tabs Route: PO; bp 10:48 Follow up: Response: No adverse reaction; Pain is decreased bp Intake: 10:52 IV: 1000ml; Total: 1000ml. bp Outcome: 09:59 Discharge ordered by . tien 10:50 Discharged to home with crutches. bp 10:50 Condition: stable 10:50 Discharge instructions given to patient, Instructed on discharge instructions, follow up and referral plans. medication usage, crutch walking, Demonstrated understanding of instructions, follow-up care, medications, crutch walking, splint care, Prescriptions given X 1. 10:52 Patient left the ED. bp Signatures: Dispatcher [employer] EDMS Andra Valadez, LIME SLUDGE MIXER-C LIME SLUDGE MIXER-CkBren Howe, RN Simi Castro Brian, RN RN bp Denilson Willis MD MD ma2
[2020-10-03 11:04] VITALS: TEMP 97
[2020-10-03 11:16] VITALS: BP 91/48; O2SAT 100
== END 2020-10-03 10:52 | disposition home or self-care (01) ==
LOC: ER 07:37
DX: K80.80 Other cholelithiasis without obstruction (principal)
CPT/HCPCS: 96361; 85025; 80048; 36415; 81025; 80076; 81003; 83690; 76705; 96375; 96374; 99284; J2405

== ENCOUNTER 2020-10-04 04:40 | Emergency (ER) | payer OTHER ==
--- OUTSIDE RECORDS SUMMARY | 2020-10-04 04:43 | XMS REPORT | Continuity of Care Document ---
:1995 Author Organization [facility] t Address [address] [place] [address] Care Team Providers Name Role Phone Jacobo [...] Department ID 2020-09-17 2020-09-17 Office Barbara Centeno [facility] [id number] 13:56:52 14:56:12 Visit Danette [id number] [place] [id number] Carmen [phone] [address] 2020-09-17 2020-09-17 Orders Doctor HERACLIO [id number] 00:00:00 00:00:00 Only UnassJOSIE miranda [id number] [place] [phone] [id number] Results This patient has no known results.
[2020-10-04] MEDS ORDERED: MORPHINE 4 MG/ML SYR ONE (06:24)
[2020-10-04 06:25] LABS: Absolute Lymphocytes (CBC) 0.8 K/uL (0.7-4.9); Basophils % 0.3 % (0-1.3); Hematocrit 35.7 % (36.0-45.0); Lymphocytes % 9.2 % (15.3-44.8); MPV 10.1 fL (7.6-11.3); RBC Red Blood Cell Count 4.19 M/uL (3.86-4.86)
[2020-10-04] MEDS ORDERED: NA CHLORIDE 0.9% 1,000 ML ONE ×2 (06:25→08:51)
[2020-10-04] MEDS ORDERED: ONDANSETRON 4 MG/2 ML VIAL ONE (06:25)
[2020-10-04] MEDS ORDERED: NA CHLORIDE 0.9% 0 ML ONE (06:25)
[2020-10-04 06:51] LABS: Albumin 3.8 g/dL (3.4-5.0); Bilirubin Direct 0.8 mg/dL (0-0.2); Bilirubin Total 1.4 mg/dL (0.2-1.0); Potassium 3.7 mmol/L (3.5-5.1); Protein, Total 7.4 g/dL (6.4-8.2)
[2020-10-04] MEDS ORDERED: PIPERACIL/TAZO 3.375 GM VIAL IV ONE (08:51)
[2020-10-04] MEDS ORDERED: NA CHLORIDE 0.9% 100 ML ONE (08:51)
--- NOTE | 2020-10-04 09:34 | RAD REPORT ---
EXAM DESCRIPTION: US - Abdomen Exam Limited - 10/04/2020 7:09 am CLINICAL HISTORY: RUQ Pain;Abd pain COMPARISON: Abdomen Exam Limited dated 10/03/2020 FINDINGS: The gallbladder demonstrates multiple gallstones. Trace paid cholecystic fluid is possible about the gallbladder neck. No gallbladder wall thickening. The common bile duct is mildly prominent measuring 8 mm. The liver demonstrates no findings of intrahepatic biliary dilatation. IMPRESSION: Cholelithiasis is noted with trace pericholecystic fluid possible near the gallbladder n tino region. Common bile duct appears prominent measuring 8 mm. Recommend MRCP followup to evaluate for possible c holedocholithiasis.
--- NOTE | 2020-10-05 17:13 | ER ---
Nurse's Notes [facility] Name: Shira Pineda Age: 25 yrs Sex: Female : 1995 Arrival Date: 10/04/2020 Time: 04:41 Bed 6 Private MD: Diagnosis: Other cholelithiasis without obstruction;Abnormal results of liver function studies Presentation: 10/04 05:13 Chief complaint: Patient states: pt states she was here yesterday dx with gallstones bb and is has surgery scheduled the end of this month but the pain is getting worse. Coronavirus screen: At this time, the client does not indicate any symptoms associated with coronavirus-19. Ebola Screen: No symptoms or risks identified at this time. Initial Sepsis Screen: Does the patient meet any 2 criteria? No. Patient's initial sepsis screen is negative. Does the patient have a suspected source of infection? No. Patient's initial sepsis screen is negative. Risk Assessment: Do you want to hurt yourself or someone else? Patient reports no desire to harm self or others. Onset of symptoms was October 03, 2020. 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 - Social history:: Smoking status: Patient denies any tobacco usage or history of. Patient/guardian denies using alcohol, street drugs. Screenin:21 Abuse screen: Denies threats or abuse. Denies injuries from another. Nutritional lp1 screening: No deficits noted. Tuberculosis screening: No symptoms or risk factors identified. Fall Risk None identified. Assessment: 06:00 General: Appears uncomfortable, Behavior is appropriate for age. Pain: Complains of lp1 pain in Epigastric Pain currently is 8 out of 10 on a pain scale. Quality of pain is described as sharp. Neuro: Level of Consciousness is awake, alert, obeys commands. Cardiovascular: Patient's skin is warm and dry. Respiratory: Respiratory effort is even, unlabored. GI: Abdomen is non-distended, Abd is soft and non tender in Epigastric Reports upper abdominal pain, nausea. : No signs and/or symptoms were reported regarding the genitourinary system. EENT: No signs and/or symptoms were reported regarding the EENT system. Derm: Skin is pink, warm \T\ dry. Musculoskeletal: No deficits noted. 07:54 Reassessment: Patient appears in no apparent distress at this time. Patient and/or jl7 family updated on plan of care and expected duration. Pain level reassessed. Patient is alert, oriented x 3, equal unlabored respirations, skin warm/dry/pink. reports decreased pain rated 4/10 at this time. 09:17 Reassessment: Patient appears in no apparent distress at this time. No changes from [facility] previously documented assessment. Patient and/or family updated on plan of care and expected duration. Pain level reassessed. Patient is alert, oriented x 3, equal unlabored respirations, skin warm/dry/pink. 10:15 Reassessment: Patient appears in no apparent distress at this time. No changes from [facility] previously documented assessment. Patient and/or family updated on plan of care and expected duration. Pain level reassessed. Patient is alert, oriented x 3, equal unlabored respirations, skin warm/dry/pink. Awaiting transfer. Vital Signs: 05:13 BP 123 / 78; Pulse 61; Resp 18 S; Temp 98.6(O); Pulse Ox 98% on R/A; Weight 71.21 kg bb (R); Height 5 ft. 3 in. (160.02 cm) (R); Pain 10/10; 09:32 BP 123 / 80; Pulse 69; Resp 15; Pulse Ox 100% ; jl7 05:13 Body Mass Index 27.81 (71.21 kg, 160.02 cm) bb ED Course: 04:41 Patient arrived in ED. ds1 05:14 Triage completed. bb 05:14 Arm band placed on Patient placed in an exam room, on a stretcher, on pulse oximetry. bb 05:34 Raffaele Reilly MD is Attending Physician. 7 06:00 Valeria Ashford, SHAYNE is Primary Nurse. lp1 06:10 Inserted saline lock: 20 gauge in right antecubital area, using aseptic technique. lp1 Blood collected. 06:21 Patient has correct armband on for positive identification. lp1 07:03 Andra Valadez FNP-C is PHCP. kb 07:09 US Abdomen Limited In Process Unspecified. EDMS 09:17 No provider procedures requiring assistance completed. Patient transferred, IV remains jl7 in place. intact, No redness/swelling at site. Administered Medications: 06:18 Drug: NS 0.9% 1000 ml Route: IV; Rate: 1000 ml; Site: right antecubital; lp1 07:30 Follow up: Response: No adverse reaction; IV Status: Completed infusion; IV Intake: jl7 1000ml 06:18 Drug: morphine 4 mg Route: IVP; Site: right antecubital; lp1 07:00 Follow up: Response: No adverse reaction; Pain is decreased jl7 06:19 Drug: Zofran (Ondansetron) 4 mg Route: IVP; Site: right antecubital; lp1 07:00 Follow up: Response: No adverse reaction; Pain is decreased jl7 09:16 Drug: NS 0.9% 1000 ml Route: IV; Rate: 125 ml/hr; Site: right antecubital; jl7 10:34 Follow up: Response: No adverse reaction; IV Status: Infusion continued upon transfer jl7 09:16 Drug: Zosyn (piperacillin-tazobactam) 3.375 grams Route: IVPB; Infused Over: 60 mins; jl7 Site: right antecubital; 10:15 Follow up: Response: No adverse reaction; IV Status: Completed infusion jl7 Intake: 07:30 IV: 1000ml; Total: 1000ml. jl7 Outcome: 08:14 ER care complete, transfer ordered by . kb 10:15 Transferred by ground EMS to [facility], Transfer form completed. jl7 X-rays sent w/ patient. 10:15 Condition: stable 10:15 Discharge instructions given to patient, Instructed on the need for transfer, Demonstrated understanding of instructions. 10:34 Patient left the ED. jl7 Signatures: Dispatcher [employer] EDMS Andra Valadez FNP-C FNP-Saray Yun ds1 Amber Cochran RN RN bb Valeria Ashford RN RN 1 Phil Banerjee RN RN jl7 Raffaele Reilly MD MD [id number]
--- NOTE | 2020-10-05 17:13 | EDPHYS ---
Physician Documentation [facility] Name: Shira Pineda Age: 25 yrs Sex: Female : 1995 Arrival Date: 10/04/2020 Time: 04:41 Bed 6 Private MD: ED Physician Raffaele Reilly HPI: 10/04 05:40 This 25 yrs old Female presents to ER via Ambulatory with complaints of mh7 Gallbladder Pain. 05:40 The patient presents with abdominal pain in the right upper quadrant. Onset: The mh7 symptoms/episode began/occurred last night. The symptoms do not radiate. Associated signs and symptoms: Pertinent positives: nausea, Pertinent negatives: anorexia, blood in stools, chest pain, constipation, diarrhea, dysuria, fever, headache, hematuria, palpitations, shortness of breath, vaginal discharge, vomiting, vomiting blood. 05:40 The symptoms are described as intermittent, vague, waxing/waning. mh7 05:40 Modifying factors: The symptoms are alleviated by nothing, the symptoms are aggravated mh7 by nothing. Severity of pain: At its worst the pain was moderate last night, in the emergency department the pain is unchanged. The patient has experienced similar episodes in the past, several times. The patient has been recently seen at the [facility] Emergency Department, yesterday. 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 - Social history:: Smoking status: Patient denies any tobacco usage or history of. Patient/guardian denies using alcohol, street drugs. ROS: 05:40 Constitutional: Negative for fever, chills, and weight loss, Eyes: Negative for injury, mh7 pain, redness, and discharge, ENT: Negative for injury, pain, and discharge, Neck: Negative for injury, pain, and swelling, Cardiovascular: Negative for chest pain, palpitations, and edema, Respiratory: Negative for shortness of breath, cough, wheezing, and pleuritic chest pain, Back: Negative for injury and pain, : Negative for injury, bleeding, discharge, and swelling, MS/Extremity: Negative for injury and deformity, Skin: Negative for injury, rash, and discoloration, Neuro: Negative for headache, weakness, numbness, tingling, and seizure, Psych: Negative for depression, anxiety, suicide ideation, homicidal ideation, and hallucinations, Allergy/Immunology: Negative for hives, rash, and allergies, Endocrine: Negative for neck swelling, polydipsia, polyuria, polyphagia, and marked weight changes, Hematologic/Lymphatic: Negative for swollen nodes, abnormal bleeding, and unusual bruising. Exam: 05:40 Constitutional: This is a well developed, well nourished patient who is awake, alert, mh7 and in no acute distress. Head/Face: Normocephalic, atraumatic. Eyes: Pupils equal round and reactive to light, extra-ocular motions intact. Lids and lashes normal. Conjunctiva and sclera are non-icteric and not injected. Cornea within normal limits. Periorbital areas with no swelling, redness, or edema. Neck: Trachea midline, no thyromegaly or masses palpated, and no cervical lymphadenopathy. Supple, full range of motion without nuchal rigidity, or vertebral point tenderness. No Meningismus. Chest/axilla: Normal chest wall appearance and motion. Nontender with no deformity. No lesions are appreciated. Cardiovascular: Regular rate and rhythm with a normal S1 and S2. No gallops, murmurs, or rubs. Normal PMI, no JVD. No pulse deficits. Respiratory: Lungs have equal breath sounds bilaterally, clear to auscultation and percussion. No rales, rhonchi or wheezes noted. No increased work of breathing, no retractions or nasal flaring. 05:40 Back: No spinal tenderness. No costovertebral tenderness. Full range of motion. Skin: Warm, dry with normal turgor. Normal color with no rashes, no lesions, and no evidence of cellulitis. MS/ Extremity: Pulses equal, no cyanosis. Neurovascular intact. Full, normal range of motion. Neuro: Awake and alert, GCS 15, oriented to person, place, time, and situation. Cranial nerves II-XII grossly intact. Motor strength 5/5 in all extremities. Sensory grossly intact. Cerebellar exam normal. Normal gait. Psych: Awake, alert, with orientation to person, place and time. Behavior, mood, and affect are within normal limits. 05:40 Abdomen/GI: Inspection: abdomen appears normal, Bowel sounds: normal, in all quadrants, Palpation: moderate abdominal tenderness, in the right upper quadrant, mass, is not appreciated, rebound tenderness, is not appreciated, voluntary guarding, is not appreciated, involuntary guarding, is not appreciated, no appreciated organomegaly, Rectal exam: the exam is deferred, because of patient request, Indicators: McBurney's point is not tender, Tovar's sign is negative, Rovsing's sign is negative, Obturator sign is negative, Psoas sign is negative, Liver: no appreciated palpable abnormalities, Hernia: not appreciated. Vital Signs: 05:13 BP 123 / 78; Pulse 61; Resp 18 S; Temp 98.6(O); Pulse Ox 98% on R/A; Weight 71.21 kg bb (R); Height 5 ft. 3 in. (160.02 cm) (R); Pain 10/10; 09:32 BP 123 / 80; Pulse 69; Resp 15; Pulse Ox 100% ; jl7 05:13 Body Mass Index 27.81 (71.21 kg, 160.02 cm) bb MDM: 07:03 Patient medically screened. kb 07:16 Data reviewed: vital signs, nurses notes. Data interpreted: Pulse oximetry: on room air kb is 98 %. Interpretation: normal. Physician consultation: Dewey Locke MD was contacted at 07:16, regarding consult, patient's condition, after a discussion of the case, a recommendation for transfer for higher level of care is made. 07:59 ED course: Dr Bueno, GI at [facility], accepts pt for consult. Awaiting hospitalist. kb 08:11 Counseling: I had a detailed discussion with the patient and/or guardian regarding: the kb historical points, exam findings, and any diagnostic results supporting the discharge/admit diagnosis, lab results, the need to transfer to another facility. Physician consultation:. ED course: Dr Flores, hospitalist at [facility], accepts pt for transfer. 10/04 05:48 Order name: Basic Metabolic Panel [facility] 10/04 05:48 Order name: CBC with Diff; Complete Time: 06:29 [facility] 10/04 05:48 Order name: Hepatic Function; Complete Time: 07:08 7 10/04 05:48 Order name: Lipase; Complete Time: 07:08 [facility] 10/04 05:48 Order name: Basic Metabolic Panel; Complete Time: 07:08 EDMS 10/04 05:48 Order name: IV Saline Lock; Complete Time: 06:19 7 10/04 06:56 Order name: US Abdomen Limited; Complete Time: 09:40 7 10/04 10:19 Order name: SARS-COV-2 RT PCR; Complete Time: 10:20 EDMS 10/04 05:48 Order name: Labs collected and sent; Complete Time: 06:19 7 Administered Medications: 06:18 Drug: NS 0.9% 1000 ml Route: IV; Rate: 1000 ml; Site: right antecubital; lp1 07:30 Follow up: Response: No adverse reaction; IV Status: Completed infusion; IV Intake: jl7 1000ml 06:18 Drug: morphine 4 mg Route: IVP; Site: right antecubital; lp1 07:00 Follow up: Response: No adverse reaction; Pain is decreased jl7 06:19 Drug: Zofran (Ondansetron) 4 mg Route: IVP; Site: right antecubital; lp1 07:00 Follow up: Response: No adverse reaction; Pain is decreased jl7 09:16 Drug: NS 0.9% 1000 ml Route: IV; Rate: 125 ml/hr; Site: right antecubital; jl7 10:34 Follow up: Response: No adverse reaction; IV Status: Infusion continued upon transfer jl7 09:16 Drug: Zosyn (piperacillin-tazobactam) 3.375 grams Route: IVPB; Infused Over: 60 mins; 7 Site: right antecubital; 10:15 Follow up: Response: No adverse reaction; IV Status: Completed infusion jl7 Disposition Summary: 10/04/20 08:14 Transfer Ordered Transfer Location: [facility] kb Reason: Higher level of care kb Condition: Stable kb Problem: an ongoing problem kb Symptoms: are unchanged kb Accepting Physician: Lilliam(10/04/20 10:34) jl7 Diagnosis - Other cholelithiasis without obstruction kb - Abnormal results of liver function studies kb Forms: - Medication Reconciliation Form kb - SBAR form kb Signatures: Dispatcher [employer] EDFL Andra Valadez, ROBERT-C WINE MERCHANT-Amber Edouard RN RN bb Valeria Ashford RN RN lp1 Phil Banerjee RN RN jl7 Raffaele Reilly MD MD mh7 Corrections: (The following items were deleted from the chart) 09:12 08:12 CORONAVIRUS+.BRZ ordered. EDFL EDMS 10:34 08:14 Lilliam reid jl7
[2020-10-06 05:43] VITALS: TEMP 98.6
[2020-10-06 05:51] VITALS: BP 123/80; O2SAT 100
== END 2020-10-04 10:34 | disposition short-term general hospital (02) ==
LOC: ER 04:40
DX: K80.80 Other cholelithiasis without obstruction (principal); R94.5 Abnormal results of liver function studies; Z20.822 Contact with and (suspected) exposure to COVID-19
CPT/HCPCS: 85025; 80048; 36415; 80076; 83690; 76705; U0003; J2543; J7030 ×2; J2405

== ENCOUNTER 2021-01-21 10:40 | Emergency (ER) | payer OTHER ==
--- NOTE | 2021-01-21 11:57 | RAD REPORT ---
EXAM DESCRIPTION: RAD - Chest Pa And Lat (2 Views) - 01/21/2021 11:16 am CLINICAL HISTORY: COUGH COMPARISON: September 2014 TECHNIQUE: Frontal and lateral views of the chest were obtained. FINDINGS: The lungs are clear. Heart size is normal and central vasculature is within normal limit s. No pleural effusion or pneumothorax seen. No acute bony finding noted. No aortic abnormality. IMPRESSION: No acute cardiopulmonary process. Insert stable
--- NOTE | 2021-01-21 13:07 | ER ---
Nurse's Notes [facility] Name: Shira Pineda Age: 25 yrs Sex: Female : 1995 Arrival Date: 01/21/2021 Time: 10:44 Bed 17 Private MD: Diagnosis: Cough Presentation: 01/21 10:50 Chief complaint: Patient states: dry, hacking cough that began 3 days ago. Pt reports ss blood tinged spit this morning. Denies fever, SOB. Coronavirus screen: Client presents with at least one sign or symptom that may indicate coronavirus-19. Standard/surgical mask placed on the client. Provider contacted for isolation considerations. Ebola Screen: Patient denies exposure to infectious person. Patient denies travel to an Ebola-affected area in the 21 days before illness onset. Initial Sepsis Screen: Does the patient meet any 2 criteria? No. Patient's initial sepsis screen is negative. Does the patient have a suspected source of infection? No. Patient's initial sepsis screen is negative. Risk Assessment: Do you want to hurt yourself or someone else? Patient reports no desire to harm self or others. Onset of symptoms was January 18, 2021. 10:50 Method Of Arrival: Ambulatory ss 10:50 Acuity: RAMANDEEP 3 ss Historical: - Allergies: 10:52 No Known Allergies; ss - PMHx: 10:52 gallstone; ss - Immunization history:: Client reports having NOT received the Covid vaccine. - Social history:: Smoking status: Patient denies any tobacco usage or history of. Screenin:55 Abuse screen: Denies threats or abuse. Nutritional screening: No deficits noted. ss Tuberculosis screening: No symptoms or risk factors identified. Fall Risk No fall in past 12 months (0 pts). No secondary diagnosis (0 pts). No IV (0 pts). Ambulatory Aid- None/Bed Rest/Nurse Assist (0 pts). Gait- Normal/Bed Rest/Wheelchair (0 pts) Mental Status- Oriented to own ability (0 pts). Total Xavier Fall Scale indicates No Risk (0-24 pts). Assessment: 10:53 General: Appears in no apparent distress. comfortable, Behavior is calm, cooperative. ss Pain: Complains of pain in throat Pain currently is 9 out of 10 on a pain scale. Pain began 2-3 days ago. Neuro: Level of Consciousness is awake, alert, obeys commands, Oriented to person, place, time, situation. Cardiovascular: Patient's skin is warm and dry. Respiratory: Reports cough that is productive, "with blood tinged mucous" Airway is patent Respiratory effort is even, unlabored, Breath sounds are clear bilaterally. GI: Patient currently denies diarrhea, nausea, vomiting. : No signs and/or symptoms were reported regarding the genitourinary system. EENT: Throat is clear is pink. Derm: Skin is intact, is healthy with good turgor. Musculoskeletal: Circulation, motion, and sensation intact. 11:58 Reassessment: Patient appears in no apparent distress at this time. No changes from vg1 previously documented assessment. Patient and/or family updated on plan of care and expected duration. Pain level reassessed. Patient is alert, oriented x 3, equal unlabored respirations, skin warm/dry/pink. 13:18 Reassessment: Patient appears in no apparent distress at this time. No changes from vg1 previously documented assessment. Patient and/or family updated on plan of care and expected duration. Pain level reassessed. Patient is alert, oriented x 3, equal unlabored respirations, skin warm/dry/pink. Vital Signs: 10:50 Pulse 83; Resp 16; Temp 98.1(TE); Pulse Ox 98% on R/A; Weight 68.04 kg; Height 5 ft. 3 ss in. (160.02 cm); Pain 0/10; 10:53 BP 117 / 85; Pulse 90; Resp 17; Pulse Ox 97% ; ss 11:56 BP 100 / 74; Pulse 83; Resp 16; Pulse Ox 97% ; vg1 13:19 BP 101 / 73; Pulse 72; Resp 16; Pulse Ox 98% ; vg1 10:50 Body Mass Index 26.57 (68.04 kg, 160.02 cm) ss ED Course: 10:44 Patient arrived in ED. as 10:44 Andra Valadez FNP-C is [facility]. kb 10:44 Jhoan Goodman MD is Attending Physician. kb 10:52 Triage completed. ss 10:52 Arm band placed on right wrist. ss 10:53 Lor Flores, SHAYNE is Primary Nurse. ss 10:55 Patient has correct armband on for positive identification. Placed in gown. Bed in low ss position. Call light in reach. Side rails up X 1. 10:55 No provider procedures requiring assistance completed. Patient did not have IV access ss during this emergency room visit. 11:05 COVID swab sent to lab. ss 11:16 Chest Pa And Lat (2 Views) XRAY In Process Unspecified. EDMS 13:13 Primary Nurse role handed off by Lor Flores, RN vg1 13:13 Marilyn Fretias, RN is Primary Nurse. vg1 Administered Medications: 13:17 Drug: Tessalon Perle (benzonatate) 100 mg Route: PO; vg1 13:18 Follow up: Response: Medication administered at discharge. vg1 Outcome: 13:07 Discharge ordered by . kb 13:09 Discharged to home ambulatory. vg1 13:09 Condition: stable 13:09 Discharge instructions given to patient, Instructed on discharge instructions, follow up and referral plans. medication usage, Demonstrated understanding of instructions, follow-up care, medications, Prescriptions given X 1. 13:10 Patient left the ED. vg1 13:19 Patient left the ED. vg1 Signatures: Dispatcher [employer] EDMN Andra Valadez, LPN INSTRUCTOR-C LPN INSTRUCTOR-Ckb Shanique Marrero as Lor Flores, SHAYNE RN Marilyn Freitas, RN RN vg1 Corrections: (The following items were deleted from the chart) 10:55 10:53 BP 118 / 5; Pulse 90bpm; Resp 17bpm; Pulse Ox 97%; ss ss
--- NOTE | 2021-01-21 13:07 | EDPHYS ---
Physician Documentation [facility] Name: Shira Pineda Age: 25 yrs Sex: Female : 1995 Arrival Date: 01/21/2021 Time: 10:44 Bed 17 Private MD: ED Physician Jhoan Goodman HPI: 01/21 10:56 This 25 yrs old Female presents to ER via Ambulatory with complaints of Cough. kb 10:56 The patient or guardian reports cough. Onset: The symptoms/episode began/occurred 3 kb day(s) ago. Severity of symptoms: At their worst the symptoms were moderate, in the emergency department the symptoms are unchanged. Modifying factors: The symptoms are alleviated by nothing, the symptoms are aggravated by nothing. Associated signs and symptoms: The patient has no apparent associated signs or symptoms. The patient has not experienced similar symptoms in the past. The patient has not recently seen a physician. Historical: - Allergies: 10:52 No Known Allergies; ss - PMHx: 10:52 gallstone; ss - Immunization history:: Client reports having NOT received the Covid vaccine. - Social history:: Smoking status: Patient denies any tobacco usage or history of. ROS: 10:55 Constitutional: Negative for fever, chills, and weight loss. kb 10:55 Respiratory: Positive for cough, Negative for dyspnea on exertion, hemoptysis, orthopnea, pleurisy, shortness of breath, sputum production, wheezing. 10:55 All other systems are negative. Exam: 10:55 Constitutional: This is a well developed, well nourished patient who is awake, alert, kb and in no acute distress. Head/Face: Normocephalic, atraumatic. ENT: Moist Mucous membranes Cardiovascular: Regular rate and rhythm with a normal S1 and S2. No gallops, murmurs, or rubs. No pulse deficits. Respiratory: Respirations even and unlabored. No increased work of breathing, no retractions or nasal flaring. Skin: Warm, dry with normal turgor. Normal color. MS/ Extremity: Pulses equal, no cyanosis. Neurovascular intact. Full, normal range of motion. Neuro: Awake and alert, GCS 15, oriented to person, place, time, and situation. Moves all extremities. Normal gait. Psych: Awake, alert, with orientation to person, place and time. Behavior, mood, and affect are within normal limits. Vital Signs: 10:50 Pulse 83; Resp 16; Temp 98.1(TE); Pulse Ox 98% on R/A; Weight 68.04 kg; Height 5 ft. 3 ss in. (160.02 cm); Pain 0/10; 10:53 BP 117 / 85; Pulse 90; Resp 17; Pulse Ox 97% ; ss 11:56 BP 100 / 74; Pulse 83; Resp 16; Pulse Ox 97% ; vg1 13:19 BP 101 / 73; Pulse 72; Resp 16; Pulse Ox 98% ; vg1 10:50 Body Mass Index 26.57 (68.04 kg, 160.02 cm) ss MDM: 10:45 Patient medically screened. kb 10:55 Data reviewed: vital signs, nurses notes. Data interpreted: Pulse oximetry: on room air kb is 97 %. Interpretation: normal. 13:06 Counseling: I had a detailed discussion with the patient and/or guardian regarding: the kb historical points, exam findings, and any diagnostic results supporting the discharge/admit diagnosis, lab results, radiology results, the need for outpatient follow up, a family practitioner, to return to the emergency department if symptoms worsen or persist or if there are any questions or concerns that arise at home. 01/21 10:51 Order name: COVID-19 SARS RT PCR (Document "Date of Onset" if Symptomatic); Complete kb Time: 13:06 01/21 10:51 Order name: Chest Pa And Lat (2 Views) XRAY; Complete Time: 11:59 kb Administered Medications: 13:17 Drug: Tessalon Perle (benzonatate) 100 mg Route: PO; vg1 13:18 Follow up: Response: Medication administered at discharge. vg1 Disposition: 14:20 Co-signature as Attending Physician, Jhoan Goodman MD I agree with the assessment and kdr plan of care. Disposition Summary: 01/21/21 13:07 Discharge Ordered Location: Home kb Condition: Stable kb Diagnosis - Cough kb Followup: kb - With: Private Physician - When: 2 - 3 days - Reason: Recheck today's complaints, Continuance of care, Re-evaluation by your physician Followup: kb - With: Emergency Department - When: As needed - Reason: Worsening of condition Discharge Instructions: - Discharge Summary Sheet kb - Cough, Adult, [id number] kb Forms: - Medication Reconciliation Form kb - Thank You Letter kb - Antibiotic Education kb - Prescription Opioid Use kb Prescriptions: - Tessalon Perles 100 mg Oral Capsule - take 1 capsule by ORAL route every 8 hours As needed; 15 capsule; Refills: 0, kb Product Selection Permitted Signatures: Dispatcher [employer] EDAndra Dickerson, JANAYC ROBERT-Jhoan Greer MD MD kdr Smirch, Shelby, RN RN ss Marilyn Freitas RN RN vg1 Corrections: (The following items were deleted from the chart) 13:06 13:06 Counseling: I had a detailed discussion with the patient and/or guardian kb regarding: the historical points, exam findings, and any diagnostic results supporting the discharge/admit diagnosis, lab results, the need for outpatient follow up, a family practitioner, to return to the emergency department if symptoms worsen or persist or if there are any questions or concerns that arise at home, kb
[2021-01-21 13:14] VITALS: TEMP 98.1
[2021-01-21] MEDS ORDERED: BENZONATATE 100 MG CAP PO ONE (13:14)
[2021-01-21 14:24] VITALS: BP 101/73; O2SAT 98
--- OUTSIDE RECORDS SUMMARY | 2021-01-22 22:36 | XMS REPORT | Continuity of Care Document ---
:1995 Author Organization [facility] t Address [address] [place] [address] Care Team Providers Name Role Phone Pcp, Does Not Have A Primary Care Physician JUN LOBO Attending Clinician Unavailable VIOLET Attending Clinician Unavailable JACOBO Attending Clinician Unavailable Jacobo TREVINO Attending Clinician Aba Locke Attending Clinician [phone] ALEX Attending Clinician Unavailable Doctor Unassigned, Name Attending Clinician Unavailable Only, Test Attending Clinician Unavailable Ultrasound Attending Clinician Unavailable Deon TREVINO Attending Clinician Makenzie Reilly MD Attending Clinician Tarik TREVINO, M Attending Clinician 2, Lab Attending Clinician Unavailable Katie TREVINO, R Attending Clinician JACOBO Admitting Clinician Unavailable JUN LOBO Admitting Clinician Unavailable VIOLET Admitting Clinician Unavailable Jazmín LANGSTON Admitting Clinician Unavailable Jacobo TREVINO Admitting Clinician Payers Payer Name Policy Type Policy Number Effective Date Expiration Date S speedyjose [facility] [id number] 2018 00:00:00 [facility] [place] STAR [id number] 2019 00:00:00 [facility] [id number] [place] [address] [id number] 2019 CHOICE MEDICAID 00:00:00 Problems Condition Condition Condition Status Onset Resolution Last Treating Co mments Source Name Details Category Date Date Treatment Clinician Date Family Family Disease Active Univers planning, planning, 8-10 ity of IUD IUD 00:00: [place] (intrauter (intrauter 00 Me dical ine ine Branch device) device) check/rein check/rein sertion/re sertion/re moval moval [place] Disease Active U nivers lithiasis lithiasis 7-26 ity of 00:00: [place] 00 Medical Branch Post Post Disease Active Univers 5-27 [place] of depression [place] 00:00[place] 00 [place] Obesity Obesity Disease Active Univers (BMI (BMI 5-01 ity of 30-39.9) 30-39.9) 00:00: [place] 00 [facility] Branch Disease Active Univers (spontaneo (spontaneo 5- it y of us vaginal [place] vaginal 00:[place]: [place] delivery) delivery) 00 Medi [facility] Branch Gastroesop Gastroesop Disease Active U nivers hageal hageal 3-09 ity of reflux reflux 00:00: [place] disease disease 00 Medical without without Branch esophagiti esophagiti s s Encounter Encounter Disease Active Uni vers for for 3-09 ity of elective elective 00:00: [place] induction induction 00 Medi juan antonio of labor of labor Branch Midline Midline Disease Active Univers low back low back 1-05 ity of pain, pain, 00:00: [place] unspecifie unspecifie 00 Me dical d d Branch chronicity chronicity , , unspecifie unspecifie d whether d whether sciatica sciatica present present Supervisio Supervisio Disease Active U nivers n of other n of other 1-05 it y of normal normal 00:00: [place] 00 [facility] Branch Allergies, Adverse Reactions, Alerts Allergy Allergy Status Severity Reaction(s) Onset Inactive Treating Comm ents Source Name Type Date Date Clinician NO KNOWN Allergy Active [facility] ALLERGIE S NO KNOWN Drug Active Univers ALLERGIE Class ity of S [facility] Social History Social Habit Start Date Stop Date Quantity Comments Source ASSERTION 2019-10-24 University of 00:00:00 [facility] Exposure to Not sure University of SARS-CoV-2 [facility] (event) Branch Tobacco use and 2020-10-19 2020-10-19 Never used Universit y of exposure 00:00:00 00:00:00 [facility] Alcohol intake 2020-10-19 2020-10-19 Ex-drinker [facility] 00:00:00 00:00:00 (finding) [facility] Sex Assigned At [birth year] Universit y of 00:00:00 00:00:00 [facility] Smoking Status Start Date Stop Date Source Unknown if ever smoked Universit y of [facility] Never smoker [facility] Medications Ordered Filled Start Stop Current Ordering Indication Dosage Frequency Signature Comments Components Source Medication Medication Date Date Medication? Clinician (SIG) Name Name metroNIDAZO 2020- Yes [id number] 500mg Take 1 Univers LE 500 mg 11-09 tablet by ity of tablet 00:00: 04:59 mouth 2 [place] 00 :00 (two) Medical times [place] daily for 7 days. metroNIDAZO 2020- Yes [id number] 500mg Take 1 Univers LE 500 mg 11-09 tablet by ity of tablet 00:00: 04:59 mouth 2 [place] 00 :00 (two) Medical times Branch daily for 7 days. 2020- No Take 1 Univer s vit 8- 08-10 TAB-CAP/M2 ity of calc,iron,f 21:07: 00:00 by mouth [place] olic 46 :00 daily. Medical ( Branch VITAMIN ORAL) 2020- No Take 1 Univer s vit 8-10 08-10 TAB-CAP/M2 ity of calc,iron,f 21:07: 00:00 by mouth [place] olic 46 :00 daily. Medical ( Branch VITAMIN ORAL) 2020- No Take 1 Univer s vit 8-10 08-10 TAB-CAP/M2 ity of calc,iron,f 21:07: 00:00 by mouth [place] olic 46 :00 daily. Medical ( Branch VITAMIN ORAL) levonorgest 2020- No [id number] 1{devic Univers reL 09-17 e} ity of (MIRENA) 23:45: 22:33 [place] IUD 1 00 :00 [employer] Branch levonorgest 2020- No [id number] 1{devi 1 Device, Univers reL 09-17 e} Intrauteri ity of (MIRENA) 23:45: 22:33 ne, ONCE, [place] as IUD 1 00 :00 1 dose, [employer] Sun09/17/20 Branch at 1845, Routine levonorgest 2020- No [id number] 1{devi Univers reL 09-17 e} ity of (MIRENA) 23:45: 22:33 [place] IUD 1 00 :00 [employer] Branch levonorgest 2020- No [id number] 1{devi 1 Device, Univers reL 09-17 e} Intrauteri ity of (MIRENA) 23:45: 22:33 ne, ONCE, [place] as IUD 1 00 :00 1 dose, [employer] Sun09/17/20 Branch at 1845, Routine levonorgest 2020- No [id number] 1{devi Univers reL 09-17 e} ity of (MIRENA) 23:45: 22:33 [place] IUD 1 00 :00 [employer] Branch levonorgest 2020- No [id number] 1{devi 1 Device, Univers reL 09-17 e} Intrauteri ity of (MIRENA) 23:45: 22:33 ne, ONCE, [place] as IUD 1 00 :00 1 dose, [employer] Sun09/17/20 Branch at 1845, Routine DULoxetine 2020- No [id number] 30mg Take 1 Univers (CYMBALTA) 08-19 capsule by it y of 30 mg 00:00: 00:00 mouth [place] capsule 00 :00 daily. Medical Branch DULoxetine 2020- No [id number] 30mg Take 1 Univers (CYMBALTA) 6-12 16- capsule by it y of 30 mg 00:00: 00:00 mouth [place] capsule 00 :00 daily. Medical Branch DULoxetine 2020- No [id number] 30mg Take 1 Univers (CYMBALTA) 6-10 07-09 capsule by it y of 30 mg 00:00: 00:00 mouth [place] capsule 00 :00 daily. Medical Branch VIRTUSSIN Yes TAKE 5 ML Uni vers AC 10-100 6-01 BY MOUTH ity of mg/5 mL 00:00: EVERY 6 [place] solution 00 HOURS Medical NEEDED Branch VIRTUSSIN Yes TAKE 5 ML Uni vers AC 10-100 6-01 BY MOUTH ity of mg/5 mL 00:00: EVERY 6 [place] solution 00 HOURS Medical NEEDED Branch VIRTUSSIN Yes TAKE 5 ML Uni vers AC 10-100 6-01 BY MOUTH ity of mg/5 mL 00:00: EVERY 6 [place] solution 00 HOURS Medical NEEDED Branch VIRTUSSIN Yes TAKE 5 ML Uni vers AC 10-100 6-01 BY MOUTH ity of mg/5 mL 00:00: EVERY 6 [place] solution 00 HOURS Medical NEEDED Branch VIRTUSSIN 2020- No TAKE 5 ML Un yoanna AC 10-100 6-01 08-10 BY MOUTH ity o f mg/5 mL 00:00: 00:00 EVERY 6 [place] solution 00 :00 HOURS Medical NEEDED Branch VIRTUSSIN 2020- No TAKE 5 ML Un yoanna AC 10-100 6-01 08-10 BY MOUTH ity o f mg/5 mL 00:00: 00:00 EVERY 6 [place] solution 00 :00 HOURS Medical NEEDED Branch VIRTUSSIN 2020- No TAKE 5 ML Un yoanna AC 10-100 6- 08-10 BY MOUTH ity o f mg/5 mL 00:00: 00:00 EVERY 6 [place] solution 00 :00 HOURS Medical NEEDED Branch SERTraline 2020- No 25mg Take 25 mg Univers 25 mg 5-27 09-17 by mouth ity of tablet 00:00: 00:00 every [place] 00 :00 morning. Medical Branch SERTraline 2020- No 25mg Take 25 mg Univers 25 mg 5-27 09-17 by mouth ity of tablet 00:00: 00:00 every [place] 00 :00 morning. Medical Branch SERTraline 2020- No 25mg Take 25 mg Univers 25 mg 5-27 09-17 by mouth ity of tablet 00:00: 00:00 every [place] 00 :00 morning. [facility] Branch Yes Take 1 Univers vit 5-02 TAB-CAP/M2 ity of calc,iron,f 03:50: by mouth [place] o[place] 37 daily. Medical ([facility] VITAMIN ORAL) Yes Take 1 Univers vit 5-02 TAB-CAP/M2 ity of calc,iron,f 03:50: by mouth [place] 37 daily. Medical ([facility] VITAMIN ORAL) Yes Take 1 Univers vit 5-02 TAB-CAP/M2 ity of calc,iron,f 03:50: by mouth [place] o[place] 37 daily. Medical ([facility] VITAMIN ORAL) Yes Take 1 Univers vit 5-02 TAB-CAP/M2 ity of calc,iron,f 03:50: by mouth [place] o[place] 37 daily. Medical ([facility] VITAMIN ORAL) Yes Take 1 Univers vit 5-02 TAB-CAP/M2 ity of calc,iron,f 03:50: by mouth [place] o[place] 37 daily. Medical ([facility] VITAMIN ORAL) Yes Take 1 Univers vit 5-02 TAB-CAP/M2 ity of calc,iron,f 03:50: by mouth [place] o[place] 37 daily. Medical ([facility] VITAMIN ORAL) oxyCODONE 2020- No 5mg 5 mg, Univer s immediate 07-10 Oral, ity of release 13:45: 13:06 ONCE, 1 [place] tablet 5 mg 00 :00 dose, Sat Med ical 07/10/20 at [place] 0845, Routine
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 Restricted medication : DALE CHUNG Yes Topical, Un yoanna (TUCKS) 50 5-01 PRN, ity of % topical 04:56: Starting [place] pad 16 Sun Medical 07/09/20 at [place] 2356, Until Discontinu ed, Routine, swelling rho(D) Yes 300ug 300 mcg, Univer s immune - Intramuscu ity of globulin 21:46: lar, ONCE, [place] as (RHOGAM) 27 For 1 Medical syringe 300 dose, [facility] Conditiona l, Routine ibuprofen 2020-0 Yes 600mg 600 mg, Univ ers (IBU) 4-30 Oral, ity of tablet 600 21:45: Q6HPRN, [place] mg 22 Starting Medical Fri Branch 07/09/20 at 1645, Until Discontinu ed, Routine, Pain (scale 4-6) acetaminoph 2020-0 Yes 650mg 650 mg, Un yoanna en 4-30 Oral, ity of (TYLENOL) 21:45: Q6HPRN, [place] tablet 650 22 Starting Medic al mg Fri Branch 07/09/20 at 1645, Until Discontinu ed, Routine, Pain (scale 1-3) diphenhydrA 2020-0 Yes 25mg 25 mg, Univ ers MINE 4-30 Oral, ity of (BENADRYL) 21:45: Q6HPRN, [place] tablet 25 21 Starting Medica l mg Fri Branch 07/09/20 at 1645, Until Discontinu ed, Routine, Sleep, Itching ondansetron 2020-0 Yes 4mg 4 mg, Slow Univers (ZOFRAN 4-30 IV Push, ity of (PF)) 21:45: Q8HPRN, [place] injection 4 21 Starting Medi juan antonio mg Fri Branch 07/09/20 at 1645, Until Discontinu ed, Routine, Nausea and Vomiting (N/V) simethicone 2020-0 Yes 160mg 160 mg, Un yoanna (GAS RELIEF 4-30 Oral, ity of (SIMETHICON 21:45: PC+HSPRN, [place] E)) 21 Starting Medical chewable Fri Branch tablet 160 07/09/20 at mg 1645, Until Discontinu ed, Routine, Gas docusate 2020-0 Yes 240mg 240 mg, Unive rs calcium 4-30 Oral, ity of (SURFAK) 21:45: QDAILYPRN, [place] as capsule 240 21 Starting Medi juan antonio mg Fri Branch 07/09/20 at 1645, Until Discontinu ed, Routine, Constipati on magnesium 2020-0 Yes 30mL 30 mL, Univer s hydroxide 4-30 Oral, ity of (MILK OF 21:45: QDAILYPRN, [place] as MAGNESIA) 21 Starting Medica l 400 mg/5 mL Fri Branch suspension 07/09/20 at 30 mL 1645, Until Discontinu ed, Routine, Constipati on benzocaine- Yes Topical, Un yoanna menthol 4-30 PRN, ity of (DERMOPLAST 21:45: Starting [place] ) 20-0.5 % Sun Medical topical 07/09/20 at Branch spray 1645, Until Discontinu ed, Routine, Perineum discomfort D5W-LR IV 2020- No 1000mL at 125 Uni vers infusion 07-09 04-30 mL/hr, IV ity o f 1,000 mL 10:00: 21:46 Infusion, [place] as 00 :28 CONTINUOUS Medical , Starting Branch Sun07/09/20 at 0500, Until Sun07/09/20 at 1646, Routine LR 1000 mL 2020- No 2mU/min 2-40 Uni vers + oxytocin 07-09 04-30 eileen-unit it y of 20 units IV 09:49: 21:46 s/min [place] Solution 37 :28 (6-120 Medical mL/hr), IV Branch Infusion, TITRATE, Oxytocin Induction / Augmentati on of Labor, Starting Sun07/09/20 at 0449
In fuse IV through a controlled infusion pump at a proximal port on the peripheral IV line.&nbsp ; Sta rt at 2 eileen-unit s/min and increase by 2 eileen-unit s/min every 20 minutes according to oxytocin policy 7.11.52.&n bsp; Going over 20 eileen-unit s/min requires faculty approval.& nbsp;&nbsp ;Max 40 eileen-unit s/min.
Yes Take 1 Univers vit 3-24 TAB-CAP/M2 ity of calc,iron,f 00:33: by mouth [place] o[place] 08 daily. Medical ( Branch VITAMIN ORAL) Yes Take 1 Univers vit 3-24 TAB-CAP/M2 ity of calc,iron,f 00:33: by mouth [place] 08 daily. Medical ( Branch VITAMIN ORAL) Yes Take 1 Univers vit 3-24 TAB-CAP/M2 ity of calc,iron,f 00:33: by mouth [place] 08 daily. Medical ( Branch VITAMIN ORAL) Yes Take 1 Univers vit 3-24 TAB-CAP/M2 ity of calc,iron,f 00:33: by mouth [place] 08 daily. Medical ( Branch VITAMIN ORAL) Yes Take 1 Univers vit 3-24 TAB-CAP/M2 ity of calc,iron,f 00:33: by mouth [place] 08 daily. Medical ( Branch VITAMIN ORAL) acetaminoph Yes 650mg 650 mg, Un yoanna en 3-23 Oral, ity of (TYLENOL) 23:32: Q6HPRN, [place] tablet 650 57 Starting Medic al mg [facility] 06/01/20 at 1832, Until Discontinu ed, Routine, Pain (scale 1-3) D5W-LR IV Yes 1000mL at 125 Univ ers infusion 3-23 mL/hr, IV ity of 1,000 mL 21:30: Infusion, [place] 00 CONTINUOUS Medical , Starting Branch [facility] 06/01/20 at 1630, Until Discontinu ed, Routine ondansetron Yes 4mg 4 mg, Slow Univers (ZOFRAN 3-23 IV Push, ity of (PF)) 20:14: Q6HPRN, [place] injection 4 47 Starting Medi juan antonio mg [facility] 06/01/20 at 1514, Until Discontinu ed, Routine, Nausea and Vomiting (N/V) acetaminoph 2020- No 1000mg 1,000 mg, Univers en - 03-23 Oral, ity of (TYLENOL) 19:30: 19:28 ONCE, 1 [place] tablet 00 :00 dose, [facility] Medical 1,000 mg 06/01/20 at [facility] h 1430, Routine D5W-LR 2020- No 1000mL at 999 Univer s Bolus - 03-23 mL/hr, ity of infusion 19:30: 18:52 1,000 mL, Luis Carlos as 1,000 mL 00 :00 IV Medical Infusion, Branch ONCE, 1 dose, [facility] 06/01/20 at 1430, Routine famotidine Yes [id number] 40mg Take 1 Univers 40 mg 2-23 tablet by ity of tablet 00:00: mouth [place] 00 daily. Medical Branch famotidine 2020-0 Yes [id number] 40mg Take 1 Univers 40 mg 2-23 tablet by ity of tablet 00:00: mouth [place] 00 daily. Medical Branch famotidine 2020-0 Yes [id number] 40mg Take 1 Univers 40 mg 2-23 tablet by ity of tablet 00:00: mouth [place] 00 daily. Medical Branch famotidine 2020-0 Yes [id number] 40mg Take 1 Univers 40 mg 2-23 tablet by ity of tablet 00:00: mouth [place] 00 daily. Medical Branch famotidine 0 Yes [id number] 40mg Take 1 Univers 40 mg 2-23 tablet by ity of tablet 00:00: mouth [place] 00 daily. Medical Branch famotidine 2020-0 Yes [id number] 40mg Take 1 Univers 40 mg 2-23 tablet by ity of tablet 00:00: mouth [place] 00 daily. Medical Branch famotidine 0 Yes [id number] 40mg Take 1 Univers 40 mg 2-23 tablet by ity of tablet 00:00: mouth [place] 00 daily. Medical Branch famotidine 2021- No [id number] 40mg Take 1 Univers 40 mg 2-23 04-30 tablet by ity of tablet 00:00: 00:00 mouth [place] 00 :00 daily. Medical Branch pyridoxine, 2019-03 Yes [id number] 25mg Take 1 Univers VITAMIN 1-09 tablet by ity of B-6, 25 mg 00:00: mouth 3 [place] tablet 00 (three) Medical times Branch daily. doxylamine 2019-03 Yes [id number] 25mg Take 1 U nivers 25 mg 1-09 tablet by ity of tablet 00:00: mouth at [place] 00 bedtime. Medical Branch metoclopram 2019-03 Yes [id number] 5mg Take 1 Univers karli HCl 1-09 tablet by ity of (REGLAN) 5 00:00: mouth [place] mg tablet 00 every 4 Medical (four) Branch hours as needed for Nausea and Vomiting (N/V). pyridoxine, 2019-03 Yes [id number] 25mg Take 1 Univers VITAMIN 1-09 tablet by ity of B-6, 25 mg 00:00: mouth 3 [place] tablet 00 (three) Medical times Branch daily. doxylamine 2019-03 Yes [id number] 25mg Take 1 U nivers 25 mg 1-09 tablet by ity of tablet 00:00: mouth at [place] 00 bedtime. Medical Branch metoclopram 2019-03 Yes [id number] 5mg Take 1 Univers karli HCl 1-09 tablet by ity of (REGLAN) 5 00:00: mouth [place] mg tablet 00 every 4 Medical (four) Branch hours as needed for Nausea and Vomiting (N/V). 2019-03 Yes Take 1 Univers vit 0-09 TAB-CAP/M2 ity of calc,iron,f 19:59: by mouth [place] o[place] 09 daily. Medical ( Branch VITAMIN ORAL) 2019-03 Yes Take 1 Univers vit 0-09 TAB-CAP/M2 ity of calc,iron,f 19:59: by mouth [place] o[place] 09 daily. Medical ( Branch VITAMIN ORAL) 2019-03 Yes Take 1 Univers vit 0-09 TAB-CAP/M2 ity of calc,iron,f 19:59: by mouth [place] o[place] 09 daily. Medical ( Branch VITAMIN ORAL) 2019-03 Yes Take 1 Univers vit 0-09 TAB-CAP/M2 ity of calc,iron,f 19:59: by mouth [place] 09 daily. Medical ( Branch VITAMIN ORAL) 2019-03 Yes Take 1 Univers vit 0-09 TAB-CAP/M2 ity of calc,iron,f 19:59: by mouth [place] 09 daily. Medical ( Branch VITAMIN ORAL) 2019-03 Yes Take 1 Univers vit 0-09 TAB-CAP/M2 ity of calc,iron,f 19:59: by mouth [place] o[place] 09 daily. Medical ( Branch VITAMIN ORAL) 2019-03 Yes Take 1 Univers vit 0-09 TAB-CAP/M2 ity of calc,iron,f 19:59: by mouth [place] 09 daily. Medical ( Branch VITAMIN ORAL) 2019-03 Yes Take 1 Univers vit 0-09 TAB-CAP/M2 ity of calc,iron,f 19:59: by mouth [place] 09 daily. Medical ( Branch VITAMIN ORAL) 2019-03 Yes Take 1 Univers vit 0-09 TAB-CAP/M2 ity of calc,iron,f 19:59: by mouth [place] 09 daily. Medical ( Branch VITAMIN ORAL) metoclopram 2019-03 Yes [id number] 5mg Take 1 Univers karli HCl 0-09 tablet by ity of (REGLAN) 5 00:00: mouth [place] mg tablet 00 every 4 Medical (four) Branch hours as needed for Nausea and Vomiting (N/V) for up to 20 doses. metoclopram 2019-03 Yes [id number] 5mg Take 1 Univers karli HCl 0-09 tablet by ity of (REGLAN) 5 00:00: mouth [place] mg tablet 00 every 4 Medical (four) Branch hours as needed for Nausea and Vomiting (N/V) for up to 20 doses. metoclopram 2019-03 Yes [id number] 5mg Take 1 Univers karli HCl 0-09 tablet by ity of (REGLAN) 5 00:00: mouth [place] mg tablet 00 every 4 Medical (four) Branch hours as needed for Nausea and Vomiting (N/V) for up to 20 doses. metoclopram 2019-03 Yes [id number] 5mg Take 1 Univers karli HCl 0-09 tablet by ity of (REGLAN) 5 00:00: mouth [place] mg tablet 00 every 4 Medical (four) Branch hours as needed for Nausea and Vomiting (N/V) for up to 20 doses. metoclopram 2019-03 Yes [id number] 5mg Take 1 Univers karli HCl 0-09 tablet by ity of (REGLAN) 5 00:00: mouth [place] mg tablet 00 every 4 Medical (four) Branch hours as needed for Nausea and Vomiting (N/V) for up to 20 doses. pyridoxine, 2019-03 2020- No [id number] 25mg Take 1 Univers VITAMIN 0-11 20- tablet by ity of B-6, 00:00: 05:59 mouth 3 [place] (VITAMIN 00 :00 (three) Medical B-6) 25 mg times Branch tablet daily for 30 days. doxylamine 2019-03- No [id number] 25mg Take 1 Univers (UNISOM, 0-11 20- tablet by ity o f DOXYLAMINE, 00:00: 05:59 mouth at [place] ) 25 mg 00 :00 bedtime Medical tablet for 30 Branch days. pyridoxine, 2019-03 2020- No [id number] 25mg Take 1 Univers VITAMIN 0-11 20- tablet by ity of B-6, 00:00: 05:59 mouth 3 [place] (VITAMIN 00 :00 (three) Medical B-6) 25 mg times Branch tablet daily for 30 days. doxylamine 2019-03- No [id number] 25mg Take 1 Univers (UNISOM, 001-18 tablet by ity o f DOXYLAMINE, 00:00: 05:59 mouth at [place] ) 25 mg 00 :00 bedtime Medical tablet for 30 Branch days. pyridoxine, 2019-03- No [id number] 25mg Take 1 Univers VITAMIN 001-18 tablet by ity of B-6, 00:00: 05:59 mouth 3 [place] (VITAMIN 00 :00 (three) Medical B-6) 25 mg times Branch tablet daily for 30 days. doxylamine 2019-03- No [id number] 25mg Take 1 Univers (UNISOM, 01-18 tablet by ity o f DOXYLAMINE, 00:00: 05:59 mouth at [place] ) 25 mg 00 :00 bedtime Medical tablet for 30 Branch days. pyridoxine, 2019-03 No [id number] 25mg Take 1 Univers VITAMIN 01-18 tablet by [employer]-6, 00:00: 05:59 mouth 3 [place] (VITAMIN 00 :00 (three) Medical B-6) 25 mg times Branch tablet daily for 30 days. doxylamine 2019-03 No [id number] 25mg Take 1 Univers (UNISOM, 01-18 tablet by ity o f DOXYLAMINE, 00:00: 05:59 mouth at [place] ) 25 mg 00 :00 bedtime Medical tablet for 30 Branch days. pyridoxine, 2019-03 No [id number] 25mg Take 1 Univers VITAMIN 01-18 tablet by [employer] B-6, 00:00: 05:59 mouth 3 [place] (VITAMIN 00 :00 (three) Medical B-6) 25 mg times Branch tablet daily for 30 days. doxylamine 2019-03- No [id number] 25mg Take 1 Univers (UNISOM, 01-18 tablet by ity o f DOXYLAMINE, 00:00: 05:59 mouth at [place] ) 25 mg 00 :00 bedtime Medical tablet for 30 Branch days. fluconazole 2020-0 Yes TAKE 1 Univ ers 150 mg 8-24 TABLET BY ity of tablet 00:00: MOUTH THEN 1 Medical TABLET IN Branch 72 HOURS fluconazole 2020-0 Yes TAKE 1 Univ ers 150 mg 8-24 TABLET BY ity of tablet 00:00: THEN 1 Medical TABLET IN Branch 72 HOURS fluconazole 2020-0 Yes TAKE 1 Univ ers 150 mg 8-24 TABLET BY ity of tablet 00:00: THEN 1 Medical TABLET IN Branch 72 HOURS fluconazole 2020-0 Yes TAKE 1 Univ ers 150 mg 8-24 TABLET BY ity of tablet 00:00: MOUTH THEN 1 Medical TABLET IN Branch 72 HOURS fluconazole 2020-0 Yes TAKE 1 Univ ers 150 mg 8-24 TABLET BY ity of tablet 00:00: THEN 1 Medical TABLET IN Branch 72 HOURS fluconazole 2020-0 Yes TAKE 1 Univ ers 150 mg 8-24 TABLET BY ity of tablet 00:00: THEN 1 Medical TABLET IN Branch 72 HOURS fluconazole 2020-0 Yes TAKE 1 Univ ers 150 mg 8-24 TABLET BY ity of tablet 00:00: THEN 1 Medical TABLET IN Branch 72 HOURS fluconazole 2020-0 Yes TAKE 1 Univ ers 150 mg 8-24 TABLET BY ity of tablet 00:00: THEN 1 Medical TABLET IN Branch 72 HOURS fluconazole 2020-0 Yes TAKE 1 Univ ers 150 mg 8-24 TABLET BY ity of tablet 00:00: THEN 1 Medical TABLET IN Branch 72 HOURS fluconazole 2020-0 2020- No TAKE 1 Uni vers 150 mg 8-24 03-23 TABLET BY ity of tablet 00:00: 00:00 MOUTH , s 00 :00 THEN 1 Medical TABLET IN Branch 72 HOURS metroNIDAZO 2020-0 Yes TAKE 1 Univ ers LE 500 mg 8-18 TABLET BY ity o f tablet 00:00: MOUTH TWICE A Medical DAY FOR 7 Branch DAYS metroNIDAZO 2020-0 Yes TAKE 1 Univ ers LE 500 mg 8-18 TABLET BY ity o f tablet 00:00: MOUTH TWICE A Medical DAY FOR 7 Branch DAYS metroNIDAZO 2020-0 Yes TAKE 1 Univ ers LE 500 mg 8-18 TABLET BY ity o f tablet 00:00: MOUTH TWICE A Medical DAY FOR 7 Branch DAYS metroNIDAZO 2020-0 Yes TAKE 1 Univ ers LE 500 mg 8-18 TABLET BY ity o f tablet 00:00: MOUTH [place] 00 TWICE A Medical DAY FOR 7 Branch DAYS metroNIDAZO 2020-0 Yes TAKE 1 Univ ers LE 500 mg 8-18 TABLET BY ity o f tablet 00:00: MOUTH [place] 00 TWICE A Medical DAY FOR 7 Branch DAYS metroNIDAZO 2020-0 Yes TAKE 1 Univ ers LE 500 mg 8-18 TABLET BY ity o f tablet 00:00: MOUTH [place] 00 TWICE A Medical DAY FOR 7 Branch DAYS metroNIDAZO 2019-0 Yes TAKE 1 Univ ers LE 500 mg 8-18 TABLET BY ity o f tablet 00:00: MOUTH [place] 00 TWICE A Medical DAY FOR 7 Branch DAYS metroNIDAZO 20200 Yes TAKE 1 Univ ers LE 500 mg 8-18 TABLET BY ity o f tablet 00:00: MOUTH [place] 00 TWICE A Medical DAY FOR 7 Branch DAYS metroNIDAZO 0 Yes TAKE 1 Univ ers LE 500 mg 8-18 TABLET BY ity o f tablet 00:00: MOUTH [place] 00 TWICE A Medical DAY FOR 7 Branch DAYS metroNIDAZO 20200 2020- No TAKE 1 Uni vers LE 500 mg 8-18 03-23 TABLET BY ity of tablet 00:00: 00:00 MOUTH [place] 00 :00 TWICE A Medical DAY FOR 7 Branch DAYS ondansetron 2018-0 Yes 4mg Take 1 Univ ers (ZOFRAN 6-06 tablet by ity of ODT) 4 mg 00:00: mouth [place] disintegrat 00 every 8 Medic al ing tablet (eight) Branch hours as needed for Nausea and Vomiting (N/V). ondansetron 2018-0 Yes 4mg Take 1 Univ ers (ZOFRAN 6-06 tablet by ity of ODT) 4 mg 00:00: mouth [place] disintegrat 00 every 8 Medic al ing tablet (eight) Branch hours as needed for Nausea and Vomiting (N/V). ondansetron 2018-0 Yes 4mg Take 1 Univ ers (ZOFRAN 6-06 tablet by ity of ODT) 4 mg 00:00: mouth [place] disintegrat 00 every 8 Medic al ing tablet (eight) Branch hours as needed for Nausea and Vomiting (N/V). ondansetron 2018-0 Yes 4mg Take 1 Univ ers (ZOFRAN 6-06 tablet by ity of ODT) 4 mg 00:00: mouth [place] disintegrat 00 every 8 Medic al ing tablet (eight) Branch hours as needed for Nausea and Vomiting (N/V). ondansetron 2018-0 Yes 4mg Take 1 Univ ers (ZOFRAN 6-06 tablet by ity of ODT) 4 mg 00:00: mouth [place] disintegrat 00 every 8 Medic al ing tablet (eight) Branch hours as needed for Nausea and Vomiting (N/V). ondansetron 2018-0 Yes 4mg Take 1 Univ ers (ZOFRAN 6-06 tablet by ity of ODT) 4 mg 00:00: mouth [place] disintegrat 00 every 8 Medic al ing tablet (eight) Branch hours as needed for Nausea and Vomiting (N/V). ondansetron 2018-0 Yes 4mg Take 1 Univ ers (ZOFRAN 6-06 tablet by ity of ODT) 4 mg 00:00: mouth [place] disintegrat 00 every 8 Medic al ing tablet (eight) Branch hours as needed for Nausea and Vomiting (N/V). ondansetron 2018-0 Yes 4mg Take 1 Univ ers (ZOFRAN 6-06 tablet by ity of ODT) 4 mg 00:00: mouth [place] disintegrat 00 every 8 Medic al ing tablet (eight) Branch hours as needed for Nausea and Vomiting (N/V). ondansetron 2018-0 Yes 4mg Take 1 Univ ers (ZOFRAN 6-06 tablet by ity of ODT) 4 mg 00:00: mouth [place] disintegrat 00 every 8 Medic al ing tablet (eight) Branch hours as needed for Nausea and Vomiting (N/V). ondansetron 2018-0 Yes 4mg Take 1 Univ ers (ZOFRAN 6-06 tablet by ity of ODT) 4 mg 00:00: mouth [place] disintegrat 00 every 8 Medic al ing tablet (eight) Branch hours as needed for Nausea and Vomiting (N/V). ondansetron 2018-0 Yes 4mg Take 1 Univ ers (ZOFRAN 6-06 tablet by ity of ODT) 4 mg 00:00: mouth [place] disintegrat 00 every 8 Medic al ing tablet (eight) Branch hours as needed for Nausea and Vomiting (N/V). ondansetron 2018-0 Yes 4mg Take 1 Univ ers (ZOFRAN 6-06 tablet by ity of ODT) 4 mg 00:00: mouth [place] disintegrat 00 every 8 Medic al ing tablet (eight) Branch hours as needed for Nausea and Vomiting (N/V). Immunizations Ordered Filled Immunization Date Status Comments [facility] e Immunization Name Name [facility] 2020-05-18 Completed University of 00:00:00 [facility] 2020-05-18 Completed University of 00:00:00 [facility] 2020-05-18 Completed University of 00:00:00 [facility] 2020-05-18 Completed University of 00:00:00 [facility] 2020-05-18 Completed University of 00:00:00 [facility] 2020-05-18 Completed University of 00:00:00 [facility] 2020-05-18 Completed University of 00:00:00 [facility] 2020-05-18 Completed University of 00:00:00 [facility] 2020-05-18 Completed University of 00:00:00 [facility] 2020-05-18 Completed University of 00:00:00 [facility] 2020-05-18 Completed University of 00:00:00 [facility] 2020-05-18 Completed University of 00:00:00 [facility] 2020-05-18 Completed University of 00:00:00 [facility] 2020-05-18 Completed University of 00:00:00 [facility] 2020-05-18 Completed University of 00:00:00 [facility] 2020-05-18 Completed University of 00:00:00 [facility] 2020-05-18 Completed University of 00:00:00 [facility] 2020-05-18 Completed University of 00:00:00 [facility] Influenza Virus 2020-01-19 Completed Universit y of Vaccine Quad .5 mL 00:00:00 [facility] IM 6+ MO Branch Influenza Virus 2020-01-19 Completed Universit y of [facility] [place] .5 mL 00:00:00 [place] [facility] IM 6+ MO Branch Influenza Virus 2020-01-19 Completed Universit y of [facility] [place] .5 mL 00:00:00 [place] [facility] IM 6+ MO Branch Influenza Virus 2020-01-19 Completed Universit y of [facility] [place] .5 mL 00:00:00 [place] [facility] IM 6+ MO Branch Influenza Virus 2020-01-19 Completed Universit y of [facility] .5 mL 00:00:00 [place] [facility] IM 6+ MO Branch Influenza Virus 2020-01-19 Completed Universit y of [facility] .5 mL 00:00:00 [place] [facility] IM 6+ MO Branch Influenza Virus 2020-01-19 Completed Universit y of [facility] [place] .5 mL 00:00:00 [place] [facility] IM 6+ MO Branch Influenza Virus 2020-01-19 Completed Universit y of [facility] [place] .5 mL 00:00:00 [place] [facility] IM 6+ MO Branch Influenza Virus 2020-01-19 Completed Universit y of [facility] [place] .5 mL 00:00:00 [place] [facility] IM 6+ MO Branch Influenza Virus 2020-01-19 Completed Universit y of [facility] [place] .5 mL 00:00:00 [place] [facility] IM 6+ MO Branch Influenza Virus 2020-01-19 Completed Universit y of [facility] [place] .5 mL 00:00:00 [place] [facility] IM 6+ MO Branch Influenza Virus 2020-01-19 Completed Universit y of [facility] [place] .5 mL 00:00:00 [place] [facility] IM 6+ MO Branch Influenza Virus 2020-01-19 Completed Universit y of [facility] [place] .5 mL 00:00:00 [place] [facility] IM 6+ MO Branch Influenza Virus 2020-01-19 Completed Universit y of [facility] [place] .5 mL 00:00:00 [place] [facility] IM 6+ MO Branch Influenza Virus 2020-01-19 Completed Universit y of [facility] [place] .5 mL 00:00:00 [place] [facility] IM 6+ MO Branch Influenza Virus 2020-01-19 Completed Universit y of [facility] [place] .5 mL 00:00:00 [place] [facility] IM 6+ MO Branch Influenza Virus 2020-01-19 Completed Universit y of [facility] [place] .5 mL 00:00:00 [place] [facility] IM 6+ MO Branch Influenza Virus 2020-01-19 Completed Universit y of [facility] [place] .5 mL 00:00:00 [place] [facility] IM 6+ MO Branch Influenza Virus 2020-01-19 Completed Universit y of [facility] [place] .5 mL 00:00:00 [place] [facility] IM 6+ MO Branch Influenza Virus 2020-01-19 Completed Universit y of [facility] [place] .5 mL 00:00:00 [place] [facility] IM 6+ MO Branch Vital Signs Vital Name Observation Time Observation Value Comments Source HEIGHT 2020-10-05 09:41:00 160 cm WEIGHT 2020-10-05 09:41:00 71.215 kg Systolic blood 2020-10-19 20:17:00 118 mm[Hg] Univer sity of pressure [place] [facility] Diastolic blood 2020-10-19 20:17:00 76 mm[Hg] Unive rsity of pressure [place] [facility] Heart rate 2020-10-19 20:17:00 93 /min Universi ty of [place] [facility] [place] Body temperature 2020-10-19 20:17:00 37 Lilia Univ ersity of [place] [facility] Respiratory rate 2020-10-19 20:17:00 18 /min Univ ersity of [place] [facility] Body height 2020-10-19 20:17:00 160 cm Universi ty [facility] [place] [facility] Body weight 2020-10-19 20:17:00 68.448 kg Universi ty [facility] [place] [facility] BMI 2020-10-19 20:17:00 26.73 kg/m2 Universi ty of [facility] Oxygen saturation in 2020-10-19 20:17:00 98 /min University of Arterial blood by [facility] Pulse oximetry Branch HEIGHT 2020-10-05 09:41:00 160 cm WEIGHT 2020-10-05 09:41:00 71.215 kg Systolic blood 2020-09-17 19:37:00 113 mm[Hg] Univer sity of pressure [place] [facility] Diastolic blood 2020-09-17 19:37:00 74 mm[Hg] Unive rsity of pressure [facility] Heart rate 2020-09-17 19:37:00 75 /min Universi ty of [place] [facility] Body temperature 2020-09-17 19:37:00 36.72 Lilia Univ ersity of [place] [facility] Respiratory rate 2020-09-17 19:37:00 16 /min Univ ersity of [facility] Branch Body height 2020-09-17 19:37:00 160 cm Universi ty of [place] [facility] Body weight 2020-09-17 19:37:00 71.578 kg Universi ty of [place] [facility] BMI 2020-09-17 19:37:00 27.95 kg/m2 Universi ty [facility] [place] [facility] Systolic blood 2020-09-17 19:37:00 113 mm[Hg] Univer sity of pressure [place] [facility] Diastolic blood 2020-09-17 19:37:00 74 mm[Hg] Unive rsity of pressure [place] [facility] Heart rate 2020-09-17 19:37:00 75 /min Universi ty of [place] [facility] Body temperature 2020-09-17 19:37:00 36.72 Lilia Univ ersity of [place] [facility] Respiratory rate 2020-09-17 19:37:00 16 /min Univ ersity of [place] [facility] Body height 2020-09-17 19:37:00 160 cm Universi ty of [place] [facility] Body weight 2020-09-17 19:37:00 71.578 kg Universi ty [facility] [place] [facility] BMI 2020-09-17 19:37:00 27.95 kg/m2 Universi ty [facility] [place] [facility] Systolic blood 2020-07-10 17:21:00 120 mm[Hg] Univer sity of pressure [place] [facility] Diastolic blood 2020-07-10 17:21:00 67 mm[Hg] Unive rsity of pressure [place] [facility] Heart rate 2020-07-10 17:21:00 126 /min Universi ty [facility] [place] [facility] Body temperature 2020-07-10 17:21:00 36.11 Lilia Univ ersity of [place] [facility] Respiratory rate 2020-07-10 13:00:00 18 /min Univ ersity of [facility] Oxygen saturation in 2020-07-09 21:45:00 100 /min University of Arterial blood by [place] [employer] juan antonio Pulse oximetry Branch Body height 2020-07-09 10:15:00 160 cm Universi ty of [place] [facility] Body weight 2020-07-09 10:15:00 77.111 kg Universi ty [facility] [place] [facility] BMI 2020-07-09 10:15:00 30.12 kg/m2 Universi ty [facility] [place] [facility] Systolic blood 2020-06-01 23:30:00 107 mm[Hg] Univer sity of pressure [place] [facility] Diastolic blood 2020-06-01 23:30:00 67 mm[Hg] Unive rsity of pressure [place] [facility] Heart rate 2020-06-01 23:30:00 99 /min Universi ty [facility] [place] [facility] Oxygen saturation in 2020-06-01 22:15:00 100 /min University of Arterial blood by [employer] juan antonio Pulse oximetry Branch Body temperature 2020-06-01 22:00:00 37 Lilia Univ ersity of [place] [facility] Respiratory rate 2020-06-01 20:30:00 18 /min [facility] Body height 2020-06-01 17:57:00 160 cm Universi ty of [facility] Body weight 2020-06-01 17:57:00 73.483 kg Universi ty [facility] BMI 2020-06-01 17:57:00 28.70 kg/m2 Universi ty [facility] Systolic blood 2019-12-19 19:53:00 102 mm[Hg] [facility] Diastolic blood 2019-12-19 19:53:00 68 mm[Hg] [facility] Heart rate 2019-12-19 19:53:00 81 /min Universi ty [facility] Body temperature 2019-12-19 19:53:00 36.78 Lilia [facility] Respiratory rate 2019-12-19 19:53:00 16 /min [facility] Body height 2019-12-19 19:53:00 160 cm Universi ty [facility] Body weight 2019-12-19 19:53:00 66.906 kg Universi ty [facility] BMI 2019-12-19 19:53:00 26.13 kg/m2 Universi [facility] Procedures Procedure Date / Time Performed Performing Clinician [facility] e POCT TEST 2020-09-17 19:22:00 Jacobo Caridad [facility] DISCLOSURE AND 2020-09-17 05:01:00 Doctor Unassigned, No [facility] CONSENT, MEDICAL AND Name [facility] SURGICAL PROCEDURES CBC WITH DIFF 2020-07-10 09:03:00 Jacobo [facility] CBC WITH DIFF 2020-07-09 11:22:00 [facility] HEPATITIS B SURFACE 2020-07-09 11:22:00 Jacobo Caridad [facility] ANTIGEN [facility] ADC OR SON ONLY - 2020-07-09 11:22:00 Caridad Centeno [facility] RPR [facility] HIV 1/2 AG-AB WITH 2020-07-09 11:22:00 [facility] REFLEX Medical Branch HB ABO GROUPING 2020-07-09 11:20:00 Caridad Centeno [facility] RHO (D) IMMUNE 2020-07-09 11:20:00 [facility]idad [facility] HOSPITAL ADMISSION 2020-07-09 05:01:00 Doctor Unassigned, No [facility] [place] ASSIGNMENT OF BENEFITS 2020-07-06 20:19:23 Doctor Unassigned, No [facility] DISCLOSURE AND 2020-06-21 05:01:00 Doctor Unassigned, No [facility] CONSENT, MEDICAL AND Name [facility] SURGICAL PROCEDURES US PELVIS > 2020-06-01 22:19:16 Jacobo Caridad [facility] 14 WEEKS Medical Branch BASIC METABOLIC PANEL 2020-06-01 19:02:00 Jacobo [facility] (NA, K, CL, CO2, Medical Branch GLUCOSE, BUN, CREATININE, CA) CBC WITH DIFF 2020-06-01 19:02:00 Caridad [facility] COVID-19 (ID NOW RAPID 2020-06-01 19:01:00 [facility] TESTING) Medical Branch NOTICE OF PRIVACY 2020-06-01 17:35:44 Doctor Unassigned, No [facility] PRACTICES Name Medical Branch EXTERNAL PROVIDER 2020-01-07 05:01:00 Doctor Unassigned, No [facility] RECORDS Name Medical [place] GLUCOSE 1 HOUR POST 2019-12-26 16:38:00 Caridad Centeno [facility] PRANDIAL Medical Branch CBC WITH DIFF 2019-12-26 16:38:00 Caridad Centeno [facility] <14 WEEKS US 2019-12-19 22:12:01 [facility] Medical Branch ASSIGNMENT OF BENEFITS 2019-12-19 19:16:55 Doctor Unassigned, No [facility] POCT URINALYSIS W/O 2019-12-19 00:00:00 Caridad Centeno [facility] SPECIFIC GRAVITY Medical Branch Encounters Start End Encounter Admission Attending Care Care Encounter Source Date/Time Date/Time Type Type Clinicians Facility Department ID 2021-01-09 Outpatient P [facility] [id number] Univers 15:39:46 ity [facility] 2021-01-09 Outpatient P [facility] [id number] Univers 08:02:01 ity of [facility] 2021-01-09 Outpatient P [facility] [id number] Univers 07:53:52 ity [facility] 2020-12-19 Inpatient LASHELL, SLE Surgery [id number] [facility] 06:08:01 ANDREAS 2020-10-04 Inpatient ER VIOLET [facility] Gastro [id number] [facility] 11:53:00 LYDIA 2021-10-24 2021-10-24 Outpatient R CARIDAD CENTENO [facility] [id number] Univers 15:30:00 15:30:00 [id number] ity [facility] 2021-10-24 2021-10-24 Outpatient R CARIDAD CENTENO [facility] [id number] Univers 15:30:00 15:30:00 ity [facility] 2020-11-09 2020-11-09 Telephone Caridad Centeno [facility] [id number] Univers 00:00:00 00:00:00 Rory [id number] it y of Women's [id number] [facility] [phone] [address] 2020-10-19 2020-10-19 Office Caridad Centeno FLBLANCA Lamar 1.2.840.114 [id number] Univers 15:04:28 15:48:04 Visit Rory [id number] it y of Women's [id number] [facility] [id number] [address] 2020-10-19 2020-10-19 Outpatient R CARIDAD CENTENO [facility] [id number] Univers 15:00:00 15:00:00 [id number] ity [facility] 2020-10-19 2020-10-19 Outpatient R CARIDAD CENTENO [facility] [id number] Univers 15:00:00 15:00:00 ity [facility] 2020-10-12 2020-10-12 [facility] [id number] 00:00:00 00:00:00 Yesica [id number] [place] [id number] 2020-10-07 2020-10-07 Outpatient ALEX [facility] [id number] Univers 15:00:00 15:00:00 JR [id number] [facility] 2020-10-07 2020-10-07 [facility] [id number] Univers 15:00:00 15:00:00 JR [facility] 2020-09-21 2020-09-21 [facility] [id number] 00:00:00 00:00:00 Yesica [id number] [place] [id number] 2020-09-21 2020-09-21 [facility] [id number] 00:00:00 00:00:00 Yesica [id number] [place] [id number] 2020-09-17 2020-09-17 Office Caridad Centeno [facility] 1.2.840.114 [id number] [facility] [place] [facility] 13:56:52 14:56:12 Visit [place] [id number] i ty [facility] [id number] [place] [phone] Co dical [address] 2020-09-17 2020-09-17 Office Caridad Centeno [facility] 1.2.840.114 [id number] 13:56:52 14:56:12 Visit [place] [id number] [place] [id number] Professio [id number] [address] 2020-09-17 2020-09-17 Outpatient R CARIDAD CENTENO [facility] [id number] Univers 13:30:00 13:30:00 [id number] [facility] 2020-09-17 2020-09-17 Outpatient R CARIDAD CENTENO [facility] [id number] Univers 13:30:00 13:30:00 [facility] 2020-09-17 2020-09-17 Orders Doctor HERACLIO 1.2.840.114 [id number] Univers 00:00:00 00:00:00 Only Unassigned, JOSIE [id number] ity of [place] [facility] [id number] Luis Carlos as [id number] [address] 2020-09-17 2020-09-17 Orders Doctor HERACLIO 1.2.840.114 [id number] 00:00:00 00:00:00 Only Unassigned, JOSIE [id number] [place] [facility] [id number] [facility] 2020-09-14 2020-09-14 Outpatient R FISHCARIDAD [facility] [id number] Univers 14:30:00 14:30:00 [id number] [facility] 2020-09-14 2020-09-14 Outpatient R CARIDAD CENTENO [facility] [id number] Univers 14:30:00 14:30:00 ity [facility] 2020-09-13 2020-09-13 Outpatient R FISHCARIDAD [facility] [id number] Univers 15:15:00 15:15:00 [id number] it[facility] 2020-09-13 2020-09-13 Outpatient R FISHCARIDAD [facility] [id number] Univers 15:15:00 15:15:00 [facility] 2020-09-09 2020-09-09 Outpatient R FISHCARIDAD [facility] [id number] Univers 16:00:00 16:00:00 [id number] [facility] 2020-09-09 2020-09-09 Outpatient R FISHCARIDAD [facility] [id number] Univers 16:00:00 16:00:00 ity [facility] 2020-08-19 2020-08-19 Outpatient R FISHCARIDAD [facility] [id number] Univers 10:30:00 10:30:00 [id number] [facility] 2020-08-19 2020-08-19 Outpatient R FISHCARIDAD [facility] [id number] Univers 10:30:00 10:30:00 ity [facility] 2020-08-05 2020-08-05 Outpatient R CARIDAD CENTENO [facility] [id number] Univers 11:15:00 11:15:00 [id number] ity of [facility] 2020-08-05 2020-08-05 Outpatient R CARIDAD CENTENO [facility] [id number] Univers 11:15:00 11:15:00 ity of [facility] 2020-07-09 2020-07-10 Hospital Caridad Centeno [facility] 1.2.840.114 [id number] Univers 04:45:00 20:30:00 Encounter [place] [id number] ity of [place] [id number] [facility] [id number] [facility] 083 [place] 2020-07-09 2020-07-09 Orders Doctor HERACLIO 1.2.840.114 [id number] Univers 00:00:00 00:00:00 Only Unassigned, JOSIE [id number] ity of [place] [facility] [id number] Luis Carlos as [id number] [facility] 009 [place] 2020-07-06 2020-07-06 Laboratory Only, Adc Test [facility] 1.2.840. 114 [id number] Univers 15:10:23 15:25:23 Only Caridad Centeno [id number] ity of [place] [id number] [facility] [id number] [facility] 353 [place] 2020-07-06 2020-07-06 Outpatient R CARIDAD CENTENO [facility] [id number] Univers 13:15:00 13:15:00 [id number] ity of [facility] 2020-07-06 2020-07-06 Outpatient R CARIDAD CENTENO [facility] [id number] Univers 13:15:00 13:15:00 ity of [facility] 2020-07-06 2020-07-06 Orders Doctor HERACLIO 1.2.840.114 [id number] Univers 00:00:00 00:00:00 Only Unassigned, JOSIE [id number] ity of [place] [facility] [id number] Luis Carlos as [id number] [address] 2020-06-29 2020-06-29 Outpatient R CARIDAD CENTENO [facility] [id number] Univers 13:15:00 13:15:00 [id number] [facility] 2020-06-29 2020-06-29 Outpatient R CARIDAD CENTENO [facility] [id number] Univers 13:15:00 13:15:00 ity [facility] 2020-06-24 2020-06-24 Outpatient R [facility] [id number] Univers 11:00:00 11:00:00 [id number] ity [facility] 2020-06-21 2020-06-21 Outpatient R CARIDAD CENTENO [facility] [id number] Univers 16:15:00 16:15:00 [id number] ity [facility] 2020-06-21 2020-06-21 Outpatient R CARIDAD CENTENO [facility] [id number] Univers 16:15:00 16:15:00 ity [facility] 2020-06-21 2020-06-21 Orders Doctor HERACLIO 1.2.840.114 [id number] Univers 00:00:00 00:00:00 Only Unassigned, JOSIE [id number] ity of [facility][1] [id number] Luis Carlos as [id number] [address] 2020-06-10 2020-06-10 [employer] Manager Ultrasound[facility] 1.2 .840.114 [id number] Univers 15:02:27 15:36:33 Visit Monalisa Chavarria LEAD ASSEMBLER [id number] [facility] [id number] Luis Carlos as MATERNAL [id number] [facility] & CHILD [address] [place] [address] 2020-06-10 2020-06-10 Outpatient R [facility] [id number] Univers 15:00:00 15:00:00 [id number] ity [facility] 2020-06-10 2020-06-10 Outpatient P [facility] [id number] Univers 15:00:00 15:00:00 ity [facility] 2020-06-02 2020-06-02 Outpatient R CARIDAD CENTENO [facility] [id number] Univers 09:45:00 09:45:00 [id number] ity of [facility] 2020-06-02 2020-06-02 Outpatient R CARIDAD CENTENO [facility] [id number] Univers 09:45:00 09:45:00 ity of [facility] 2020-06-01 2020-06-01 [facility] Caridad Centeno [facility] 1.2.840.114 [id number] Univers 12:38:00 19:30:00 Encounter [place] [id number] ity [facility] [id number] [facility] [id number] [facility] 083 [place] 2020-06-01 2020-06-01 Outpatient R CARIDAD CENTENO [facility] [id number] Univers 09:45:00 09:45:00 [id number] ity of [facility] 2020-06-01 2020-06-01 Outpatient R CARIDAD CENTENO [facility] [id number] Univers 09:45:00 09:45:00 ity of [facility] 2020-06-01 2020-06-01 Orders Doctor HERACLIO 1.2.840.114 [id number] Univers 00:00:00 00:00:00 Only Unassigned, JOSIE [id number] ity of [facility][1] [id number] [facility] [id number] [facility] 009 [place] 2020-05-27 2020-05-27 [employer] Manager Ultrasound, [facility] 1.2 .840.114 [id number] Univers 15:24:27 15:54:27 Visit Olga Villareal LEAD ASSEMBLER [id number] [facility] [id number] [place] MATERNAL [id number] [facility] ical & CHILD [address] [place] [address] 2020-05-27 2020-05-27 Outpatient R [facility] [id number] Univers 15:30:00 15:30:00 [id number] ity of [facility] 2020-05-27 2020-05-27 Outpatient P [facility] [id number] Univers 15:30:00 15:30:00 ity of [facility] 2020-05-18 2020-05-18 Outpatient R CARIDAD CENTENO [facility] [id number] Univers 09:30:00 09:30:00 [id number] ity of [facility] 2020-05-18 2020-05-18 Outpatient R CARIDAD CENTENO [facility] [id number] Univers 09:30:00 09:30:00 ity of [facility] 2020-05-04 2020-05-04 Outpatient R CARIDAD CENTENO [facility] [id number] Univers 14:30:00 14:30:00 ity of [facility] 2020-05-04 2020-05-04 Outpatient R CARIDAD CENTENO [facility] [id number] Univers 08:00:00 08:00:00 [id number] ity of [facility] 2020-05-04 2020-05-04 Outpatient R CARIDAD CENTENO [facility] [id number] Univers 08:00:00 08:00:00 ity of [facility] 2020-04-19 2020-04-19 Outpatient R [facility] [id number] Univers 10:30:00 10:30:00 [id number] ity [facility] 2020-04-19 2020-04-19 Outpatient R [facility] [id number] Univers 10:30:00 10:30:00 ity of [facility] 2020-04-13 2020-04-13 Outpatient R CAIRDAD CENTENO [facility] 346 [id number] Univers 16:15:00 16:15:00 [id number] ity [facility] 2020-04-13 2020-04-13 Outpatient R CARIDAD CENTENO [facility] [id number] Univers 16:15:00 16:15:00 ity [facility] 2020-03-17 2020-03-17 [employer] Manager 2, Adc Lab [facility] 1.2.840.114 [id number] Univers 16:13:42 16:28:42 [id number] [facility] [id number] Nathan Duranio [phone] [address] 2020-03-17 2020-03-17 Outpatient R [facility] [id number] Univers 16:15:00 16:15:00 [id number] ity [facility] 2020-03-17 2020-03-17 Outpatient R [facility] [id number] Univers 16:15:00 16:15:00 ity of [facility] 2020-03-16 2020-03-16 Outpatient R CARIDAD CENTENO [facility] [id number] Univers 16:15:00 16:15:00 ity of [facility] 2020-03-16 2020-03-16 Outpatient R CARIDAD CENTENO [facility] 346 [id number] Univers 16:00:00 16:00:00 [id number] ity [facility] 2020-03-16 2020-03-16 Outpatient R CARIDAD CENTENO [facility] 285 [id number] Univers 16:00:00 [facility]00:[facility]-03 2020-03-03 [employer] Manager [facility]tras[facility] 1.2 .840.114 [id number] Univers 14:11:09 15:11:09 Visit Jeovanny Wilson LEAD ASSEMBLER [id number] ity [facility] 4.2.7.2.686 Luis Carlos as MATERNAL [phone] Med ical & CHILD [address] [place] [address] 2020-03-03 2020-03-03 Outpatient R [facility] [id number] Univers 14:15:00 14:15:00 [id number] ity [facility] 2020-03-03 2020-03-03 Outpatient R [facility] [id number] Univers 14:15:00 14:15:00 ity [facility] 2020-02-17 2020-02-17 Outpatient R CARIDAD CENTENO [facility] 346 [id number] Univers 10:00:00 10:00:00 [id number] ity [facility] 2020-02-17 2020-02-17 Outpatient R CARIDAD CENTENO [facility] 100 [id number] Univers 10:00:00 10:00:00 ity [facility] 2020-01-19 2020-01-19 Outpatient R CARIDAD CENTENO [facility] 346 [id number] Univers 10:30:00 10:30:00 ity of [facility] 2020-01-19 2020-01-19 Outpatient R CARIDAD CENTENO [facility] 209 [id number] Univers 10:30:00 10:30:00 ity of [facility] 2020-01-09 2020-01-09 Telephone Caridad Centeno [facility] 1.2.840.114 [id number] Univers 00:00:00 00:00:00 [place] [id number] i [place] [phone] Co dical nal 134 [facility] 2020-01-07 2020-01-07 Orders Doctor HERACLIO 1.2.840.114 [id number] Univers 00:00:00 00:00:00 Only Unassigned, JOSIE [id number] ity of [place] [facility] [id number] Luis Carlos as [phone] [address] 2019-12-26 2019-12-26 Agricultural [employer] Manager 2, Adc Lab [facility] 1.2.840.114 [id number] Univers 10:34:43 10:49:43 Visit Caridad Centeno [place] [id number] ity [place] [phone] Co dical nal 353 [facility] 2019-12-26 2019-12-26 Outpatient R [facility] [id number] Univers 10:15:00 10:15:00 [id number] ity of [facility] 2019-12-26 2019-12-26 Outpatient R [facility] [id number] Univers 10:15:00 10:15:00 ity of [facility] 2019-12-22 2019-12-22 Telephone Caridad Centeno [facility] 1.2.840.114 [id number] Univers 00:00:00 00:00:00 [place] [id number] i [place] [phone] Co dical nal 134 [facility] 2019-12-19 2019-12-19 Initial Caridad Centeno [facility] 1.2.840.114 [id number] Univers 14:31:14 16:02:34 [place] [id number] ity of Visit Desirae 4.2.7.2.686 Nathan Morales [phone] Co dical nal [address] 2019-12-19 2019-12-19 Outpatient R CARIDAD CENTENO [facility] [id number] Univers 14:00:00 14:00:00 ity of [facility] 2019-12-19 2019-12-19 Orders Doctor HERACLIO 1.2.840.114 [id number] [facility] 00:00:00 00:00:00 Only Unassigned, JOSIE [id number] ity of [place] [facility] [id number] Luis Carlos jack [phone] [address] Results Test Description Test Time Test Comments Results Result Sour e Comments [place], ERCP 2020-10-05 Reason for 12:28:00 exam:->[place]oled[place] holithiasis [facility] CANTOR FERNANDOJeff : 1995 Sex: F Fl uoroscopic unit utilized for a procedure performed in the OR. No interpretation was requested. Refer to the operative report for findings. Refer to PACS for patient radiation dose information. BASIC METABOLIC PANEL 2020-10-05 05:33:00 Test Item Value Reference Range Interpretation Comme nts SODIUM (BEAKER) (test code 140 meq/L 136-145 = 381) POTASSIUM (BEAKER) (test 4.1 meq/L 3.5-5.1 code = 379) CHLORIDE (BEAKER) (test 108 meq/L 98-107 H code = 382) CO2 (BEAKER) (test code = 26 meq/L 22-29 355) BLOOD UREA NITROGEN 3 mg/dL 7-21 L (BEAKER) (test code = 354) CREATININE (BEAKER) (test 0.75 mg/dL 0.57-1.25 code = 358) GLUCOSE RANDOM (BEAKER) 87 mg/dL 70-105 (test code = 652) CALCIUM (BEAKER) (test code 8.7 mg/dL 8.4-10.2 = 697) EGFR (BEAKER) (test code = 93 mL/min/1.73 sq m ESTIMATED GFR IS NOT 1092) ACCURATE CRE ATININE CLEARANCE IN VA EDICTING GLOMERULAR FILT RATION RATE. ESTIMATED GFR IS NOT APPLICABLE FOR DIALYSIS PATIENTS. Finisher Polisher ID - NIMISHA EPATIC FUNCTION [id number] 05:33:00 Test Item Value Reference Range Interpretation Comments TOTAL PROTEIN (BEAKER) (test code = 6.4 gm/dL 6.0-8.3 770) ALBUMIN (BEAKER) (test code = 1145) 3.7 g/dL 3.5-5.0 BILIRUBIN TOTAL (BEAKER) (test code 2.5 mg/dL 0.2-1.2 H = 377) BILIRUBIN DIRECT (BEAKER) (test 1.8 mg/dL 0.1-0.5 H code = 706) ALKALINE PHOSPHATASE (BEAKER) (test 173 U/L 40-150 H code = 346) AST (SGOT) (BEAKER) (test code = 546 U/L 5-34 H 353) ALT (SGPT) (BEAKER) (test code = 515 U/L 6-55 H 347) Finisher Polisher ID - NIMISHA MCBC W/PLT COUNT & AUTO [id number] 04:48:00 Test Item Value Reference Range Interpretation Comments WHITE BLOOD CELL COUNT (BEAKER) 3.9 K/ L 3.5-10.5 (test code = 775) RED BLOOD CELL COUNT (BEAKER) 4.12 M/ L 3.93-5.22 (test code = 761) HEMOGLOBIN (BEAKER) (test code = 11.8 GM/DL 11.2-15.7 410) HEMATOCRIT (BEAKER) (test code = 37.0 % 34.1-44.9 411) MEAN CORPUSCULAR VOLUME (BEAKER) 89.8 fL 79.4-94.8 (test code = 753) MEAN CORPUSCULAR HEMOGLOBIN 28.6 pg 25.6-32.2 (BEAKER) (test code = 751) MEAN CORPUSCULAR HEMOGLOBIN CONC 31.9 GM/DL 32.2-35.5 L (BEAKER) (test code = 752) RED CELL DISTRIBUTION WIDTH 14.5 % 11.7-14.4 H (BEAKER) (test code = 412) PLATELET COUNT (BEAKER) (test 227 K/CU MM 150-450 code = 756) MEAN PLATELET VOLUME (BEAKER) 12.4 fL 9.4-12.3 H (test code = 754) NUCLEATED RED BLOOD CELLS 0 /100 WBC 0-0 (BEAKER) (test code = 413) NEUTROPHILS RELATIVE PERCENT 44 % (BEAKER) (test code = 429) LYMPHOCYTES RELATIVE PERCENT 38 % (BEAKER) (test code = 430) MONOCYTES RELATIVE PERCENT 9 % (BEAKER) (test code = 431) EOSINOPHILS RELATIVE PERCENT 8 % (BEAKER) (test code = 432) BASOPHILS RELATIVE PERCENT 1 % (BEAKER) (test code = 437) NEUTROPHILS ABSOLUTE COUNT 1.70 K/ L 1.56-6.13 (BEAKER) (test code = 670) LYMPHOCYTES ABSOLUTE COUNT 1.47 K/ L 1.18-3.74 (BEAKER) (test code = 414) MONOCYTES ABSOLUTE COUNT (BEAKER) 0.36 K/ L 0.24-0.36 (test code = 415) EOSINOPHILS ABSOLUTE COUNT 0.31 K/ L 0.04-0.36 (BEAKER) (test code = 416) BASOPHILS ABSOLUTE COUNT (BEAKER) 0.02 K/ L 0.01-0.08 (test code = 417) IMMATURE GRANULOCYTES-RELATIVE 0 % 0-1 PERCENT (BEAKER) (test code = 2801) BASIC METABOLIC [id number] 15:17:00 Test Item Value Reference Range Interpretation Comments SODIUM (BEAKER) 140 meq/L 136-145 (test code = 381) POTASSIUM (BEAKER) 3.6 meq/L 3.5-5.1 (test code = 379) CHLORIDE (BEAKER) 106 meq/L 98-107 (test code = 382) CO2 (BEAKER) (test 25 meq/L 22-29 code = 355) BLOOD UREA NITROGEN 5 mg/dL 7-21 L (BEAKER) (test code = 354) CREATININE (BEAKER) 0.74 mg/dL 0.57-1.25 (test code = 358) GLUCOSE RANDOM 101 mg/dL 70-105 (BEAKER) (test code = 652) CALCIUM (BEAKER) 8.7 mg/dL 8.4-10.2 (test code = 697) EGFR (BEAKER) (test 95 mL/min/1.73 ESTIMA YESICA GFR IS code = 1092) sq m NOT ACCURATE CREATININE CLEARANCE IN PREDICTING GLOMERULAR FILTRATION RATE . ESTIMATED GFR I S NOT APPLICABLE FOR DIALYSIS PATIEN TS. Finisher Polisher ID - DBHEPATIC FUNCTION [id number] 15:17:00 Test Item Value Reference Range Interpretation Comments TOTAL PROTEIN (BEAKER) (test code = 6.5 gm/dL 6.0-8.3 770) ALBUMIN (BEAKER) (test code = 1145) 3.8 g/dL 3.5-5.0 BILIRUBIN TOTAL (BEAKER) (test code 1.9 mg/dL 0.2-1.2 H = 377) BILIRUBIN DIRECT (BEAKER) (test 1.4 mg/dL 0.1-0.5 H code = 706) ALKALINE PHOSPHATASE (BEAKER) (test 152 U/L 40-150 H code = 346) AST (SGOT) (BEAKER) (test code = 366 U/L 5-34 H 353) ALT (SGPT) (BEAKER) (test code = 278 U/L 6-55 H 347) Finisher Polisher ID - DBPOCT [id number] 19:22:00 Test Item Value Reference Range Interpretation Comments POCT PREG (test code Negative = 1605) On board controls Yes acceptable with C Line (test code = 3574) POCT PREG LOT # (test code = 3575) POCT PREG TEST DATE (test code = 3576) CECY (test code = CECY) accurate development and interpretation of all internal controls [facility] [id number] 19:22:00 Test Item Value Reference Range Interpretation Comments POCT PREG (test code Negative = 1605) On board controls Yes acceptable with C Line (test code = 3574) POCT PREG LOT # (test code = 3575) POCT PREG TEST DATE (test code = 3576) CECY (test code = CECY) accurate development and interpretation of all internal controls [facility] [id number] 19:22:00 Test Item Value Reference Range Interpretation Comments POCT PREG (test code Negative = 1605) On board controls Yes acceptable with C Line (test code = 3574) POCT PREG LOT # (test code = 3575) POCT PREG TEST DATE (test code = 3576) CECY (test code = CECY) accurate development and interpretation of all internal controls [facility] OR SON ONLY - [id number] 11:52:41 Test Item Value Reference Range Interpretation Comments RPR (Qualitative) (test code = Nonreactive Nonreactive 93011-6) Lab Interpretation (test code = Normal 06084-5) [facility] with [id number] 09:23:20 Test Item Value Reference Range Interpretation Comments WBC (test code = See_Comment H [Automated 4490-2) message] The sy stem which generated this result transmitted reference range : 4.30 - 11.10 10*3/?L. The reference range was not used to interpret this result as normal/abnormal . RBC (test code = See_Comment L [Automated 789-8) message] The sy stem which generated this result transmitted reference range : 3.93 - 5.25 10*6/?L. The reference range was not used to interpret this result as normal/abnormal . HGB (test code = 9.5 g/dL 11.6-15.0 L 718-7) HCT (test code = 28.8 % 35.7-45.2 L 4544-3) MCV (test code = 88.1 fL 80.6-95.5 787-2) MCH (test code = 29.1 pg 25.9-32.8 785-6) MCHC (test code = 33.0 g/dL 31.6-35.1 786-4) RDW-SD (test code = 42.8 fL 39.0-49.9 61385-6) RDW-CV (test code = 13.4 % 12.0-15.5 788-0) PLT (test code = See_Comment [Automated 777-3) message] The sy stem which generated this result transmitted reference range : 166 - 358 10*3/ ?L. The reference r antoine was not used to interpret this result as normal/abnormal . MPV (test code = 11.6 fL 9.5-12.9 19726-1) NRBC/100 WBC (test See_Comment [Automat ed code = 0764704373) message] The system which generated this result transmitted reference range : 0.0 - 10.0 /100 WBCs. The refer ence range was not u sed to interpret th is result as normal/abnormal . NRBC x10^3 (test code <0.01 See_Comment [Auto mated = 8011172475) message] The s ystem which generated this result transmitted reference range : 10*3/?L. The reference range was not used to interpret this result as normal/abnormal . GRAN MAT (NEUT) % 68.8 % (test code = 770-8) IMM GRAN % (test code 0.60 % = 8969956373) LYMPH % (test code = 21.0 % 736-9) MONO % (test code = 8.4 % 5905-5) EOS % (test code = 0.9 % 713-8) BASO % (test code = 0.3 % 706-2) GRAN MAT x10^3(ANC) 8.54 10*3/uL 1.88-7.09 H (test code = 5585674923) IMM GRAN x10^3 (test 0.07 10*3/uL 0.00-0.06 H code = 2437120246) LYMPH x10^3 (test code 2.61 10*3/uL 1.32-3.29 = 731-0) MONO x10^3 (test code 1.04 10*3/uL 0.33-0.92 H = 742-7) EOS x10^3 (test code = 0.11 10*3/uL 0.03-0.39 711-2) BASO x10^3 (test code 0.04 10*3/uL 0.01-0.07 = 704-7) Lab Interpretation Abnormal (test code = 95535-6) [facility]) IMMUNE [id number] 22:08:33 Test Item Value Reference Range Interpretation Comments RHIG CANDIDATE? No- see comment Patient i s not a (test code = candidate for R [facility]- 5055) Patient is Rh Positive.Perfor med at [facility] Laboratory Services - [facility] Blood Pgka[address] Free: [phone] A No. [id number] [facility] CenterHepatitis B Surface [id number] 19:04:17 Test Item Value Reference Range Interpretation Comments HBsAg Semi-Quantitative (test code = Negative Negative 5195-3) [facility]HIV [facility]/2 AG-AB WITH [id number] 15:12:35 Test Item Value Reference Range Interpretation Comments HIV Negative Negative Semi-quantitative (test code = 90444-1) CECY (test code = Non-reactive for HIV-1 CECY) antigen and HIV-1/HIV-2 antibodies. ?No laboratory evidence of HIV infection. ?Repeat in 2-4 weeks if acute HIV infection is suspected. [facility] CenterType and Screen - ONCE [id number] 14:29:39 Test Item Value Reference Range Interpretation Comments ABO & RH (test code O Positive Performe d at [facility] = 20) Laboratory Serv [facility] [address] [address]Toll Free: [phone] A No. [id number] IAT (test code = Negative Performed a t [facility] 1185) Laboratory Serv [facility] [address] [address]Toll Free: [phone] A No. [id number] [facility] CenterCBC with [id number] 11:49:40 Test Item Value Reference Range Interpretation Comments WBC (test code = See_Comment [Automated 1290-2) message] The sy stem which generated this result transmitted reference range : 4.30 - 11.10 10*3/?L. The reference range was not used to interpret this result as normal/abnormal . RBC (test code = See_Comment L [Automated 529-8) message] The sy stem which generated this result transmitted reference range : 3.93 - 5.25 10*6/?L. The reference range was not used to interpret this result as normal/abnormal . HGB (test code = 11.0 g/dL 11.6-15.0 L 718-7) HCT (test code = 33.5 % 35.7-45.2 L 4544-3) MCV (test code = 87.7 fL 80.6-95.5 787-2) MCH (test code = 28.8 pg 25.9-32.8 785-6) MCHC (test code = 32.8 g/dL 31.6-35.1 786-4) RDW-SD (test code = 42.9 fL 39.0-49.9 64308-0) RDW-CV (test code = 13.5 % 12.0-15.5 788-0) PLT (test code = See_Comment [Automated 777-3) message] The sy stem which generated this result transmitted reference range : 166 - 358 10*3/ ?L. The reference r antoine was not used to interpret this result as normal/abnormal . MPV (test code = 12.0 fL 9.5-12.9 98679-4) NRBC/100 WBC (test See_Comment [Automat ed code = 3333304952) message] The system which generated this result transmitted reference range : 0.0 - 10.0 /100 WBCs. The refer ence range was not u sed to interpret th is result as normal/abnormal . NRBC x10^3 (test code <0.01 See_Comment [Auto mated = 7489791334) message] The s ystem which generated this result transmitted reference range : 10*3/?L. The reference range was not used to interpret this result as normal/abnormal . GRAN MAT (NEUT) % 64.7 % (test code = 770-8) IMM GRAN % (test code 0.60 % = 2476054459) LYMPH % (test code = 23.5 % 736-9) MONO % (test code = 8.5 % 5905-5) EOS % (test code = 2.3 % 713-8) BASO % (test code = 0.4 % 706-2) GRAN MAT x10^3(ANC) 6.29 10*3/uL 1.88-7.09 (test code = 7736294236) IMM GRAN x10^3 (test 0.06 10*3/uL 0.00-0.06 code = 1785439641) LYMPH x10^3 (test code 2.28 10*3/uL 1.32-3.29 = 731-0) MONO x10^3 (test code 0.83 10*3/uL 0.33-0.92 = 742-7) EOS x10^3 (test code = 0.22 10*3/uL 0.03-0.39 711-2) BASO x10^3 (test code 0.04 10*3/uL 0.01-0.07 = 704-7) Lab Interpretation Abnormal (test code = 11415-5) [facility] CenterUS PELVIS > 14 [id number] 22:56:44Impression: 1. ?Single viable intrauterine gestation, with estimated gestational age of34 weeks 2 days. ?2. ?No acute complication identified.3. Cord insertion on the fetus is not visualized. brain structuresare not well visualized due to position.4. Echogenic material is noted within the stomach. Findings mayrepresent debris resulting in a pseudomass. Consider short-term intervalfollow-up to ensure resolution. RL: 2824 End of Report Exam: Greater than 14 Weeks Ultrasound, 06/01/2020 3:45 PM. Ordering Physician: CARIDAD CENTENO. History: Abdominal pain, variable decelerations of heart tones. Comparison:None. ? Technique: Greater than 14 weeks obstetric ultrasound was obtainedtransabdominally. anatomic survey was performed. Technical Quality: Adequate. Findings: Single intrauterine gestation is i dentified, in cephalic presentation. movement is observed. ? heart rate is 160 beats/min.Placenta is fundal and towards maternal right in location. There is noevidence of placenta previa orplacental abruption. ?Internal cervical osis closed. ?Cervix measures 3.7 cm in length. ?Amniotic fluid index is 9.01cm. biometric measurements were obtained:Biparietal Diameter 8.53 cm corresponds to estimated gestational age of 34weeks 3 days. ?Head Circumference 30.05 cm corresponds to estimated gestational age of 33weeks 3 days. ?Abdominal Circumference 29.03 cm corresponds to estimated gestational ageof 33 weeks 1 day. ?Femur Length 6.98 cm corresponds to estimated gestational age of 35 weeks 6days. ? Estimated gestational age based on sonographic criteria is 34 weeks 2 days. Estimated weight is 2324 g. Estimated gestational age based on lastmenstrual period is 33 weeks 4 days. survey demonstrates normal bladder, kidneys, 4-chamber heart,3-vessel cord, visualized spine, and visualized extremities. Fetalextremities and spine are incompletely visualized due to size. Cordinsertion of the fetus is not visualized, though the cord insertion on theplacenta is visualized. A small amount of echogenic material is notedwithin the stomach. brain structures including the lateralventricles, cisterna magna, and cerebellum are not well visualized. Fetalnose, lips, and profile are normal. Fetus is female. Maternal ovaries are not visualized. [facility], Radiant Results Inft User - 06/01/2020 5:57 PM CDTExam: Greater than 14 Weeks Ultrasound, 06/01/2020 3:45 PM.Ordering Physician: CARIDAD CENTENO.History: Abdominal pain, variable decelerations of heart tones.Comparison: None. Technique: Greater than 14 weeks obstetric ultrasound was obtainedtransabdominally. anatomic survey was performed.Technical Quality: Adequate.Findings: Single intrauterine gestation is identified, in cephalic presentation. movement is observed. heart rate is 160 beats/min.Placenta is fundal and towards maternal right in location. There is noevidence of placenta previa or placental abruption. Internal cervical osis closed. Cervix measures 3.7 cm in length. Amniotic fluid index is 9.01cm. biometric measurements were obtained:Biparietal Diameter 8.53 cm corresponds to estimated gestational age of 34weeks 3 days. Head Circumference 30.05 cm corresponds to estimated gestational age of 33weeks 3 days. Abdominal Circumference 29.03 cm corresponds to estimated gestational ageof 33 weeks 1 day. Femur Length 6.98 cm corresponds to estimated gestational age of35 weeks 6days. Estimated gestational age based on sonographic criteria is 34 weeks 2 days. Estimated weight is 2324 g. Estimated gestational age based on lastmenstrual period is 33 weeks 4 days. survey demonstrates normal bladder, kidneys, 4-chamber heart,3-vessel cord, visualized spine,and visualized extremities. Fetalextremities and spine are incompletely visualized due to size. Cordinsertion of the fetus is not visualized, though the cord insertion on theplacenta is visualized. A small amount of echogenic material is notedwithin the stomach. brain structures including the lateralventricles, cisterna magna, and cerebellum are not well visualized. Fetalnose, lips,and profile are normal. Fetus is female.Maternal ovaries are not visualized.IMPRESSIONImpression: 1. Single viable intrauterine gestation, with estimated gestational age of34 weeks 2 days. 2. No acute complication identified.3. Cord insertion on the fetus is not visualized. brain structu resare not well visualized due to position.4. Echogenic material is noted within the stomach. Findings mayrepresent debris resulting in a pseudomass. Consider short-term intervalfollow-up to ensure resolution. RL: 2824End of Report [facility] CenterBASI METABOLIC PANEL (NA, K, CL, CO2, GLUCOSE, BUN, CREATININE, CA)2020-06-01 19:53:04 Test Item Value Reference Range Interpretation Comments NA (test code = 135 mmol/L 135-145 0060338389) K (test code = 3.9 mmol/L 3.5-5.0 9097545326) CL (test code = 103 mmol/L 98-108 9343852821) CO2 TOTAL (test code = 20 mmol/L 23-31 L 8482072385) AGAP (test code = 2-16 2779557282) BUN (test code = 10 mg/dL 7-23 5563202778) GLUCOSE (test code = 70 mg/dL 70-110 7069126466) CREATININE (test code = 0.46 mg/dL 0.50-1.04 L 3411244637) CALCIUM (test code = 8.4 mg/dL 8.6-10.6 L 5421652956) eGFR Calculation mL/min/1.73m2 (Non-) (test code = 3832239521) eGFR Calculation mL/min/1.73m2 () (test code = 7335307907) CECY (test code = CECY) Association of Glomerular Filtration Rate (GFR) and Staging of Kidney Disease* + --+ --+ ------+| GFR (mL/min/1.73 m2) ?| With Kidney Damage ?| ?Without Kidney Damage+ --------+ --------+ +| ?>90 ?| ?Stage one ?| ? Normal ?+ ---+ ---+ -------+| ?60-89 ?| ?Stage two ?| ? Decreased GFR ? + --+ --+ ------+| ?30-59 ?| ?Stage three ?| ? Stage three ? + --+ --+ ------+| ?15-29 ?| ?Stage four ? | ? Stage four ?+ ---+ ---+ -------+| ?<15 (or dialysis) ? ?| ?Stage five ? | ? Stage five ?+ ---+ ---+ -------+ *Each stage assumes the associated GFR level has been in effect for at least three months. ?Stages 1 to 5, with or without kidney disease, indicate chronic kidney disease. Notes: Determination of stages one and two (with eGFR >59mL/min/1.73 m2) requires estimation of kidney damage for at least three months as defined by structural or functional abnormalities of the kidney, manifested by either:Pathological abnormalities or Markers of kidney damage (including abnormalities in the composition of the blood or urine or abnormalities in imaging tests). Lab Interpretation Abnormal (test code = 40424-5) [facility] CenterCOVID-[facility] (ID NOW RAPID TESTING)2020-06-01 19:51:38 Test Item Value Reference Range Interpretation Comments SARS-CoV-2 Rapid ID NOW Not Detected Not Detected (test code = 97770-5) CECY (test code = CECY) ID NOW COVID-19 Assay is an isothermal nucleic acid amplification test intended for the qualitative detection of nucleic acid from SARS-CoV-2 viral RNA in nasopharyngeal (CLINIC PHYSICIAN DIRECTOR) specimens. It is used under Emergency Use Authorization (EUA) by FDA. The limit of detection (LOD) of the assay is 125 Genome Equivalents/mL. A positive result is indicative of the presence of SARS-CoV-2 RNA. ?Clinical correlation with patient history and other diagnostic information is necessary to determine patient infection status. A negative (Not Detected) result does not preclude SARS-CoV-2 infection. In patients with clinical symptoms and other tests that are consistent with SARS-CoV-2 infection, negative results should be treated as presumptive negative and a new specimen should be tested with alternative PCR molecular test. Invalid: Please collect a new specimen for repeat patient testing if clinically indicated. Lab Interpretation Normal (test code = 52545-6) [facility] WITH [id number] 19:39:37 Test Item Value Reference Range Interpretation Comments WBC (test code = See_Comment H [Automated 9090-2) message] The system which generated this result transmit yesica reference range : 4.30 - 11.10 10*3/?L. The reference range was not used to interpret this result as normal/abnormal . RBC (test code = See_Comment L [Automated 789-8) message] The system which generated this result transmit yesica reference range : 3.93 - 5.25 10*6/?L. The reference range was not used to interpret this result as normal/abnormal . HGB (test code = 11.5 g/dL 11.6-15.0 L 718-7) HCT (test code = 34.9 % 35.7-45.2 L 4544-3) MCV (test code = 91.1 fL 80.6-95.5 787-2) MCH (test code = 30.0 pg 25.9-32.8 785-6) MCHC (test code = 33.0 g/dL 31.6-35.1 786-4) RDW-SD (test code = 41.3 fL 39.0-49.9 16839-0) RDW-CV (test code = 12.7 % 12.0-15.5 788-0) PLT (test code = See_Comment [Automated 777-3) message] The system which generated this result transmit yesica reference range : 166 - 358 10*3/ ?L. The reference range was not u sed to interpret th is result as normal/abnormal . MPV (test code = 11.8 fL 9.5-12.9 51439-8) NRBC/100 WBC (test See_Comment [Automat ed code = [id number]) message] The system which generated this result transmit yesica reference range : 0.0 - 10.0 /100 WBCs. The reference range was not used to interpret this result as normal/abnormal . NRBC x10^3 (test code <0.01 See_Comment [Auto mated = [id number]) message] The system which generated this result transmit yesica reference range : 10*3/?L. The reference range was not used to interpret this result as normal/abnormal . GRAN MAT (NEUT) % 83.0 % (test code = 770-8) IMM GRAN % (test code 1.00 % = [id number]) LYMPH % (test code = 8.9 % 736-9) MONO % (test code = 5.6 % 5905-5) EOS % (test code = 1.1 % 713-8) BASO % (test code = 0.4 % 706-2) GRAN MAT x10^3(ANC) 10.05 10*3/uL 1.88-7.09 H (test code = 3426082930) IMM GRAN x10^3 (test 0.12 10*3/uL 0.00-0.06 H code = [id number]) LYMPH x10^3 (test code 1.08 10*3/uL 1.32-3.29 L = 731-0) MONO x10^3 (test code 0.68 10*3/uL 0.33-0.92 = 742-7) EOS x10^3 (test code = 0.13 10*3/uL 0.03-0.39 711-2) BASO x10^3 (test code 0.05 10*3/uL 0.01-0.07 = 704-7) Lab Interpretation Abnormal (test code = 06478-8) [facility] [id number] 17:51:00 Test Item Value Reference Range Interpretation Comments GLUC 1 HR (test code = [id number]) 122 mg/dL 120-170 Lab Interpretation (test code = Normal 29144-8) [facility] [id number] 17:27:00 Test Item Value Reference Range Interpretation Comments WBC (test code = See_Comment [Automated 0877-2) message] The sy stem which generated this result transmitted reference range : 4.30 - 11.10 10*3/?L. The reference range was not used to interpret this result as normal/abnormal . RBC (test code = See_Comment [Automated 789-8) message] The sy stem which generated this result transmitted reference range : 3.93 - 5.25 10*6/?L. The reference range was not used to interpret this result as normal/abnormal . HGB (test code = 12.5 g/dL 11.6-15 718-7) HCT (test code = 37.1 % 35.7-45.2 4544-3) MCV (test code = 91.2 fL 80.6-95.5 787-2) MCH (test code = 30.7 pg 25.9-32.8 785-6) MCHC (test code = 33.7 g/dL 31.6-35.1 786-4) RDW-SD (test code = 38.8 fL 39-49.9 L 30229-5) RDW-CV (test code = 11.7 % 12-15.5 L 788-0) PLT (test code = See_Comment [Automated 777-3) message] The sy stem which generated this result transmitted reference range : 166 - 358 10*3/ ?L. The reference r antoine was not used to interpret this result as normal/abnormal . MPV (test code = 12.1 fL 9.5-12.9 83850-8) NRBC/100 WBC (test See_Comment [Automat ed code = [id number]) message] The system which generated this result transmitted reference range : 0.0 - 10.0 /100 WBCs. The refer ence range was not u sed to interpret th is result as normal/abnormal . NRBC x10^3 (test code <0.01 See_Comment [Auto mated = [id number]) message] The s ystem which generated this result transmitted reference range : 10*3/?L. The reference range was not used to interpret this result as normal/abnormal . GRAN MAT (NEUT) % 69.5 % (test code = 770-8) IMM GRAN % (test code 0.40 % = 2255494928) LYMPH % (test code = 22.5 % 736-9) MONO % (test code = 5.4 % 5905-5) EOS % (test code = 1.7 % 713-8) BASO % (test code = 0.5 % 706-2) GRAN MAT x10^3(ANC) 5.69 10*3/uL 1.88-7.09 (test code = 8025832077) IMM GRAN x10^3 (test 0.03 10*3/uL 0-0.06 code = 5363950700) LYMPH x10^3 (test code 1.84 10*3/uL 1.32-3.29 = 731-0) MONO x10^3 (test code 0.44 10*3/uL 0.33-0.92 = 742-7) EOS x10^3 (test code = 0.14 10*3/uL 0.03-0.39 711-2) BASO x10^3 (test code 0.04 10*3/uL 0.01-0.07 = 704-7) Lab Interpretation Abnormal (test code = 71550-8) [facility]<14 WEEKS US [id number] 22:14:01CRL 2.37 corresponding to 9 weeks 1 day. heat rate is 158. Lots of movement.[facility] SPECIFIC [id number] 19:44:00 Test Item Value Reference Range Interpretation Comments POCT PH U (test code = 3254) 7.0 mg/dl 5-8 POCT U LEUK EST (test code = negative Negative - Negative 3263) POCT U NIT (test code = 3262) positive Negative - Negative POCT U PROT (test code = 3259) trace Negative - Negative POCT U GLU (test code = 3256) negative Negative - Negative POCT U KETONE (test code = negative Negative - Negative 3258) POCT U BLD (test code = 3257) negative Negative - Negative [facility]"
== END 2021-01-21 13:19 | disposition home or self-care (01) ==
LOC: ER 10:40
DX: R05.9 Cough, unspecified (principal)
CPT/HCPCS: 71046; 99283; U0003